=== PATIENT | male | born 1940 | race Two or more races ===

== ENCOUNTER → 2016-08-15 | Outpatient (CLI) | payer MEDICARE, MEDICAID ==
[~2016-08-15] MED LIST: AMIODARONE HCL200 MG ORAL; ASPIR 8181 MG ORAL; CARVEDILOL6.25 MG ORAL; CRESTOR40 MG ORAL; ENTRESTO 97 MG1 EACH PO; FINASTERIDE5 MG ORAL; GABAPENTIN PO; IBUPROFEN600 MG ORAL; LEVOTHYROXINE75 MCG ORAL; PRILOSEC20 MG ORAL; RANEXA1000 MG ORAL; RANEXA500 MG ORAL; ZETIA10 MG ORAL
--- NOTE | 2016-08-17 08:30 | Diagnostic Imaging Report ---
Indications: COUGH Technique: PA and lateral chest Findings: Comparison: 10/19/14 Inspiratory effort improved. Small calcified nodules again noted in right lung apex. Lungs now otherwise clear and appear mildly hyperinflated with flattening of the diaphragm. Heart size, pulmonary vasculature within normal limits. No pleural abnormalities. Aortic arch elongation, sternal wires again noted. IMPRESSION: No current evidence of acute cardiopulmonary disease Suggestion of COPD Stable chronic changes as described
== END | disposition home or self-care (01) ==
LOC: RAD 11:33
DX: Z01.818 Encounter for other preprocedural examination (principal); R05 Cough
CPT/HCPCS: 71020

== ENCOUNTER 2016-09-22 13:26 | Inpatient (IN) | payer MEDICARE, MEDICAID ==
[~2016-09-22] VITALS: Ht 157.5 cm; Wt 78.5 kg
[~2016-09-22 13:26] MED LIST changes: -AMIODARONE HCL200 MG ORAL; -FINASTERIDE5 MG ORAL; -RANEXA1000 MG ORAL
[2016-09-22 14:42] LABS: APPEARANCE,URINE CLOUDY; LEUKOCYTE ESTERASE ,URINE 3+ (NEGATIVE); NITRITE,URINE POSITIVE (NEGATIVE); PH,URINE 5 (4.5-8.0); PROTEIN,URINE 3+ (NEGATIVE); UROBILINOGEN,URINE 1 MG/DL (0.0-1.0)
[2016-09-22] MEDS ORDERED: metroNIDAZOLE 500mg 100 ML IV SCH (14:45)
[2016-09-22 14:49] LABS: KETONES,URINE NEGATIVE (NEGATIVE)
[2016-09-22 14:53] LABS: BACTERIA,URINE FEW /HPF; ICTOTEST NEGATIVE; SQUAMOUS EPITHELIAL CELL,UR OCCASIONAL /LPF (NONE/OCC); WBC,URINE 60-80 /HPF (0 - 0)
[2016-09-22] MEDS ORDERED: Unasyn 3gm Inj ONE (15:42)
[2016-09-22] MEDS: Ampicillin/Sulbactam Sod 3 GM in NS 110 ML IV SCH ×2 (15:45→20:45)
[2016-09-22 16:00] LABS: BASOPHILS % (AUTO) 0.3 % (0.0-2.0); EOSINOPHILS % (AUTO) 0.7 % (0.0-3.0); LYMPHOCYTES % (AUTO) 7.8 % (20.0-45.0); MEAN CORPUSCULAR HGB CONC 31.9 G/DL (32.0-36.0); MEAN CORPUSCULAR VOLUME 97 FL (80-99); MEAN PLATELET VOLUME 6.8 FL (6.5-10.1); MONOCYTES % (AUTO) 7.1 % (1.0-10.0); NEUTROPHILS % (AUTO) 84.1 % (45.0-75.0); PLATELET COUNT 226 K/UL (150-450); RED BLOOD COUNT 3.79 M/UL (4.70-6.10); RED CELL DISTRIBUTION WIDTH 13.8 % (11.6-14.8); WHITE BLOOD COUNT 15.8 K/UL (4.8-10.8)
[2016-09-22 16:06] LABS: INR 1.4 (0.9-1.1); PROTHROMBIN TIME 14.6 SEC (9.30-11.50)
[2016-09-22 16:17] LABS: ALANINE AMINOTRANSFERASE 13 U/L (3-41); ALBUMIN/GLOBULIN RATIO 1.1 (1.0-2.7); ANION GAP 16 (5-15); ASPARTATE AMINO TRANSFERASE 13 U/L (5-40); CALCIUM 8.8 mg/dL (8.6-10.2); CARBON DIOXIDE 26 mEQ/L (20-30); CHLORIDE 97 mEQ/L (98-107); CREATININE 1.3 mg/dL (0.7-1.2); HEMOLYSIS 2; POTASSIUM 3.8 mEQ/L (3.4-4.9); SODIUM 139 mEQ/L (135-145); TOTAL PROTEIN 7.2 g/dL (6.6-8.7)
[2016-09-22 16:28] LABS: CKMB < 1.5 ng/mL (< 6.7)
[2016-09-22 16:33] LABS: TROPONIN I < 0.30 ng/mL (<=0.30)
[2016-09-22 16:39] VITALS: BP 94/69
[2016-09-22 17:45] VITALS: BP 119/58
[2016-09-22 18:44] VITALS: BP 114/53
--- NOTE | 2016-09-22 18:45 | Emergency Room Report ---
History of Present Illness General Chief Complaint: Male Urogenital Problems Source: Patient Present Illness HPI Patient is a 76-year-old male presented after increased scrotal swelling for the past 3 days. Patient had gradual onset of symptoms. Patient was noted to have increased pain to his scrotal area and was having some difficulty walking. The patient had prior to prostate surgery approximately one month ago. This was performed at [facility]. Allergies: Coded Allergies: No Known Allergies (Unverified , 08/09/12) Patient History Past Medical History: see triage record Reviewed Nursing Documentation: PMH: Agreed, PSxH: Agreed Nursing Documentation-PMH Past Medical History: No History, Except For Hx Cardiac Problems: Yes Hx Hypertension: Yes Review of Systems All Other Systems: negative except mentioned in HPI Physical Exam Vital Signs Date Time Temp Pulse Resp B/P Pulse Ox O2 Delivery O2 Flow Rate FiO2 09/22/16 13:47 97.5 72 18 91/56 98 Room Air Sp02 EP Interpretation: reviewed, normal General Appearance: normal inspection, alert, mild distress Head: atraumatic ENT: normal ENT inspection, hearing grossly normal, normal voice Neck: normal inspection, full range of motion, supple, no bony tend Respiratory: normal inspection, lungs clear, normal breath sounds, no respiratory distress, no retraction, no wheezing Cardiovascular #1: regular rate, rhythm, no edema Gastrointestinal: normal inspection, normal bowel sounds, non tender, soft, no guarding, no hernia Genitourinary: other - scrotal swelling and erythema Musculoskeletal: normal inspection, back normal, normal range of motion Neurologic: normal inspection, alert, oriented x3, responsive, portfolio administrator III-XII nml as tested, speech normal Psychiatric: normal inspection, judgement/insight normal, mood/affect normal Skin: normal inspection, normal color, no rash Medical Decision Making Diagnostic Impression: Primary Impression: Cellulitis of scrotum Additional Impressions: Prostate hypertrophy Urinary tract infection ER Course Patient present for scrotal swelling. Differential diagnosis included was not limited to Fournieres gangrene, scrotal cellulitis, hydrocele, epidydimoorchitis. Because of complexity of patient's case laboratory testing and imaging studies were ordered. The patient was noted to have some evidence of urinary tract infection. The patient was noted to have some soft tissue swelling the scrotum. CT of the abdomen and pelvis read by radiology showed no scrotal air. The patient was discussed with Dr. Yanes for urology consult. Dr. delgado was contacted for inpatient management Laboratory Tests Test 09/22/16 14:30 09/22/16 15:24 Urine Color Brown Urine Appearance Cloudy Urine pH 5 (4.5-8.0) Urine Specific [place] 1.025 (1.005-1.035) Urine Protein 3+ (NEGATIVE) H Urine Glucose (UA) 1+ (NEGATIVE) H Urine Ketones Negative (NEGATIVE) Urine Occult Blood 5+ (NEGATIVE) H Urine Nitrite Positive (NEGATIVE) H Urine Bilirubin 1+ (NEGATIVE) H Urine Ictotest Negative Urine Urobilinogen 1 MG/DL (0.0-1.0) H Urine Leukocyte Esterase 3+ (NEGATIVE) H Urine RBC 10-15 /HPF (0 - 0) H Urine WBC 60-80 /HPF (0 - 0) H Urine Squamous Epithelial Cells Occasional /LPF Urine Bacteria Few /HPF (NONE) White Blood Count 15.8 K/UL (4.8-10.8) H Red Blood Count 3.79 M/UL (4.70-6.10) L Hemoglobin 11.7 G/DL (14.2-18.0) L Hematocrit 36.8 % (42.0-52.0) L Mean Corpuscular Volume 97 FL (80-99) Mean Corpuscular Hemoglobin 31.0 PG (27.0-31.0) Mean Corpuscular Hemoglobin Concent 31.9 G/DL (32.0-36.0) L Red Cell Distribution Width 13.8 % (11.6-14.8) Platelet Count 226 K/UL (150-450) Mean Platelet Volume 6.8 FL (6.5-10.1) Neutrophils (%) (Auto) 84.1 % (45.0-75.0) H Lymphocytes (%) (Auto) 7.8 % (20.0-45.0) L Monocytes (%) (Auto) 7.1 % (1.0-10.0) Eosinophils (%) (Auto) 0.7 % (0.0-3.0) Basophils (%) (Auto) 0.3 % (0.0-2.0) Prothrombin Time 14.6 SEC (9.30-11.50) H Prothrombin Time INR 1.4 (0.9-1.1) H PTT 36 SEC (23-33) H Sodium Level 139 mEQ/L (135-145) Potassium Level 3.8 mEQ/L (3.4-4.9) Chloride Level 97 mEQ/L (98-107) L Carbon Dioxide Level 26 mEQ/L (20-30) Anion Gap 16 (5-15) H Blood Urea Nitrogen 25 mg/dL (7-23) H Creatinine 1.3 mg/dL (0.7-1.2) H Estimate Glomerular Filtration Rate mL/min (>60) Glucose Level 99 mg/dL (74-106) Lactic Acid Level 1.70 mmol/L (0.66-2.22) Calcium Level 8.8 mg/dL (8.6-10.2) Total Bilirubin 1.0 mg/dL (0.0-1.2) Aspartate Amino Transferase (AST) 13 U/L (5-40) Alanine Aminotransferase (ALT) 13 U/L (3-41) Alkaline Phosphatase 64 U/L (40-129) Total Creatine Kinase 46 U/L (38-174) Creatine Kinase MB < 1.5 ng/mL (< 6.7) Creatine Kinase MB Relative Index Troponin I < 0.30 ng/mL (<=0.30) Total Protein 7.2 g/dL (6.6-8.7) Albumin 3.8 g/dL (3.5-5.2) Globulin 3.4 g/dL Albumin/Globulin Ratio 1.1 (1.0-2.7) Last Vital Signs Date Time Temp Pulse Resp B/P Pulse Ox O2 Delivery O2 Flow Rate FiO2 09/22/16 17:45 97.7 69 21 119/58 98 Room Air Status: unchanged Disposition: ADMITTED INPATIENT Condition: Serious Referrals: NON PHYSICIAN (PCP) Fred Talbot Sep 22, 2016 18:45
[2016-09-22] MEDS ORDERED: Morphine Sulfate 2mg/ml Inj IVP PRN (22:00)
[2016-09-22] MEDS ORDERED: Nitroglycerin Subl 0.4mg tab (Bottle Of 25) SL PRN (22:00)
[2016-09-22] MEDS ORDERED: Miralax 17gm pkt ORAL PRN (22:00)
[2016-09-22] MEDS ORDERED: DuoNeb 0.5-3(2.5)mg/3ml neb HHN PRN (22:00)
[2016-09-22] MEDS ORDERED: Vancomycin 1gm inj IVPB ONE (22:45)
[2016-09-22] MEDS: Vancomycin 1gm in D5W 275ml IVPB SCH (22:54)
[2016-09-22] MEDS ORDERED: Cefepime HCl 2 GM in D5W 110 ML IV SCH (23:30)
[2016-09-23] VITALS (8 sets, daily range): BP systolic 83–125; BP diastolic 50–73
[2016-09-23] MEDS ORDERED: Vancomycin 1 GM in D5W 275 ML IV SCH (00:30)
[2016-09-23] MEDS ORDERED: Cefepime 2gm ONE (01:05)
[2016-09-23] MEDS: Cefepime HCl 2 GM in D5W 110 ML IV SCH (01:15)
[2016-09-23] MEDS ORDERED: AMIODARONE HCL200 MG ORAL (01:53)
[2016-09-23] MEDS ORDERED: FINASTERIDE5 MG ORAL (01:53)
--- NOTE | 2016-09-23 04:49 | Consultation ---
DATE OF CONSULTATION: 09/22/2016 UROLOGY CONSULTATION REASON FOR CONSULTATION: The patient is a 76-year-old male complaining of scrotal pain and swelling for three days. He came to the emergency room. CAT scan showed swelling. It did not show any free air or other ominous findings. The patient complains of having a reasonable urination. He had a transurethral resection of the prostate. The patient gives no further history. PAST MEDICAL HISTORY: I was unable to obtain from the patient. PAST SURGICAL HISTORY: Likely transurethral resection of the prostate. SOCIAL HISTORY: Noncontributory. REVIEW OF SYSTEMS: Noncontributory. PHYSICAL EXAMINATION: GENERAL: The patient with mild distress. ABDOMEN: Soft and nontender. BACK: No CVA tenderness. EXTERNAL GENITALIA: Scrotum with moderate swelling bilaterally and mild erythema. Penis within normal limits. RECTAL: Prostate with mild enlargement and no nodules. ASSESSMENT AND PLAN: The patient has scrotal cellulitis. He would respond nicely to intravenous antibiotics and will be followed in the hospital during this hospital course. Neal Yanes DR: CATY JOB#: [id number] CC:
[2016-09-23 07:46] LABS: BASOPHILS % (AUTO) 0.5 % (0.0-2.0); EOSINOPHILS % (AUTO) 1.3 % (0.0-3.0); LYMPHOCYTES % (AUTO) 10.8 % (20.0-45.0); MEAN CORPUSCULAR HEMOGLOBIN 30.7 PG (27.0-31.0); MEAN CORPUSCULAR HGB CONC 32.2 G/DL (32.0-36.0); MEAN CORPUSCULAR VOLUME 95 FL (80-99); MEAN PLATELET VOLUME 6.5 FL (6.5-10.1); MONOCYTES % (AUTO) 10.3 % (1.0-10.0); NEUTROPHILS % (AUTO) 77.1 % (45.0-75.0); PLATELET COUNT 161 K/UL (150-450); RED BLOOD COUNT 2.86 M/UL (4.70-6.10); RED CELL DISTRIBUTION WIDTH 13.4 % (11.6-14.8); WHITE BLOOD COUNT 12.1 K/UL (4.8-10.8)
[2016-09-23 08:00] LABS: ALANINE AMINOTRANSFERASE 10 U/L (3-41); ALBUMIN/GLOBULIN RATIO 1.3 (1.0-2.7); ANION GAP 14 (5-15); ASPARTATE AMINO TRANSFERASE 11 U/L (5-40); CALCIUM 7.7 mg/dL (8.6-10.2); CARBON DIOXIDE 23 mEQ/L (20-30); CHLORIDE 101 mEQ/L (98-107); HEMOLYSIS 2; POTASSIUM 3.4 mEQ/L (3.4-4.9); SODIUM 138 mEQ/L (135-145); TOTAL PROTEIN 5.2 g/dL (6.6-8.7)
[2016-09-23] MEDS: Carvedilol 6.25mg Tab ORAL SCH ×2 (09:00→20:31)
[2016-09-23] MEDS: Ranolazine 500mg tab ORAL SCH ×3 (09:00→20:30)
[2016-09-23] MEDS: Heparin 5000 units/ml inj SUBQ SCH ×3 (09:05→21:00)
--- NOTE | 2016-09-23 09:43 | Diagnostic Imaging Report ---
Indication: Abdominal pain Technique: Continuous helical transaxial imaging of the abdomen and pelvis was obtained from the lung bases to the pubic symphysis during intravenous contrast administration. Coronal 2-D reformats were also obtained. Study obtained in a Siemens sensation [address] Total Dose length Product (DLP): [address] Dose Index Volume (CTDIvol): 19 mGy Comparison: None Findings: There is mild posterior basilar atelectasis. Small fat-containing hernia noted in the posterior aspect of the right hemidiaphragmatic leaflet. There is small nonobstructive stone in the left kidney. There is perinephric stranding which is nonspecific. There is thickening of the wall the urinary bladder. There is a large cyst in the upper pole the right kidney measuring between 8 and 9 cm. There is no evidence of intra-abdominal abscess or free fluid. There are small bilateral inguinal hernias containing fat. There is marked edema within the scrotal wall and evidence of bilateral hydroceles. Further clinical evaluation suggested. There is a defect in the central portion of the prostate consistent with previous transurethral resection of the prostate gland. The gallbladder is noted. Questionable small stones are present. The pancreas, both adrenal glands, spleen appear unremarkable. Impression: Scrotal wall edema and bilateral hydroceles. Clinical evaluation recommended. Nonobstructive stone in the left kidney Bilateral perinephric stranding nonspecific. Consider pyelonephritis and infection. 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 8-9 cm right renal cyst Thickening of the urinary bladder wall consistent with cystitis. Please correlate clinically. Status post TURP Dr. Hill has communicated the preliminary results to the Emergency Department. There are no significant discrepancies. The CT scanner at [facility] is accredited by the [employer] and the scans are performed using protocols designed to limit radiation exposure to as low as reasonably achievable to attain images of sufficient resolution adequate for diagnostic evaluation.
--- NOTE | 2016-09-23 10:01 | Cardiology Report ---
APPROVED REPORT EKG Measurement Heart [id number] Normal sinus rhythm Left bundle branch block Abnormal ECG
[2016-09-23] MEDS ORDERED: RANEXA1000 MG ORAL (10:49)
--- NOTE | 2016-09-23 11:09 | Diagnostic Imaging Report ---
Indication: Dyspnea Comparison: 08/15/69 A single view chest radiograph was obtained. Findings: There is a sternotomy noted. Heart is mildly enlarged. Left hemidiaphragm is elevated. Bones are osteopenic. Lungs are slightly hyperinflated. Impression: No acute disease
--- NOTE | 2016-09-23 14:01 | Consultation ---
Consult Note Consult Note ID CONSULT: Vivian# [id number] Assessment/Plan ASSESSMENT: 76 y/o male with: // Scrotal cellulitis - CT A/P: Scrotal wall edema and bilateral hydroceles // Probable complicated UTI / cystitis - UCx pending - CT A/P: Nonobstructive stone in the left kidney. Bilateral perinephric stranding nonspecific. 8-9 cm right renal cyst. Thickening of the urinary bladder wall consistent with cystitis. - h/o TURP // Leukocytosis - improved, afebrile // STEPHANY - resolved // NKDA // Full Code PLAN: - continue empiric IV vancomycin, cefepime d# -14 pending cultures - f/u cultures, adjust ABX accordingly - monitor CBC, temperatures - monitor BMP Thanks! Will follow BELÉN JONES Sep 23, 2016 14:01
--- NOTE | 2016-09-23 14:01 | Urology Progress Note ---
Assessment/Plan Status: stable Assessment/Plan 76 yo male with scrotal swelling and likely left worse than right epididymitis. Swelling is reactive. Already feels better. Should improve rapidly on abx. 1. scrotal elevation 2. abx for 2 weeks, if culture negative recommend cipro 500 mg BID or Bactrim DS BID x 2 weeks 3. f/u with own urologist in 2 weeks. Subjective Date patient seen: Sep 23, 2016 Time patient seen: 13:59 ROS Limited/Unobtainable: No Constitutional: Denies: chills, diaphoresis, fever, malaise, no symptoms, other , weakness HEENT: Denies: blurred vision, double vision, ear discharge, ear pain, eye pain , mouth pain, mouth swelling, no symptoms, nose congestion, nose pain, other, tearing, throat pain, throat swelling Cardiovascular: Denies: chest pain, edema, irregular heart rate, lightheadedness, no symptoms, other, palpitations, syncope Respiratory: Denies: SOB at rest, SOB with excertion, cough, no symptoms, orthopnea, other, shortness of breath, sputum, stridor, wheezing Gastrointestinal/Abdominal: Denies: abdomen distended, abdominal pain, black stools, blood in stool, constipated, diarrhea, difficulty swallowing, nausea, no symptoms, other, poor appetite, poor fluid intake, rectal bleeding, tarry stools, vomiting Genitourinary: Reports: pain Neurologic/Psychiatric: Denies: anxiety, depressed, emotional problems, headache, no symptoms, numbness, other, paresthesia, pre-existing deficit, seizure, tingling, tremors, weakness Endocrine: Denies: excessive sweating, flushing, increased hunger, increased thirst, increased urine, intolerance to cold, intolerance to heat, no symptoms, other, unexplained weight gain, unexplained weight loss Hematologic/Lymphatic: Denies: anemia, easy bleeding, easy bruising, no symptoms, other Allergies: Coded Allergies: No Known Allergies (Unverified , 08/09/12) Subjective feeling better. right testicle improved. Objective Last 24 Hour Vital Signs Date Time Temp Pulse Resp B/P Pulse Ox O2 Delivery O2 Flow Rate FiO2 09/23/16 13:40 19 94/59 96 Room Air 09/23/16 12:43 97.0 59 18 83/50 95 Room Air 09/23/16 12:00 61 09/23/16 09:00 68 84/52 09/23/16 08:23 98.2 65 18 93/54 96 Room Air 09/23/16 08:07 67 09/23/16 05:00 72 115/60 09/23/16 04:00 64 09/23/16 04:00 99.0 67 18 91/50 95 Room Air 09/23/16 00:00 71 09/23/16 00:00 97.0 70 18 110/50 96 Room Air 09/22/16 21:33 76 18 104/56 96 Room Air 09/22/16 18:44 70 15 114/53 98 Room Air 09/22/16 17:45 97.7 69 21 119/58 98 Room Air 09/22/16 16:39 69 15 94/69 99 Room Air Intake and Output 09/22/16 09/23/16 19:00 07:00 Intake Total 1210 ml 755.000 ml Balance 1210 ml 755.000 ml Intake Oral 120 ml IV Total 1210 ml 635.000 ml # Voids 2 Laboratory Tests 09/22/16 14:30: Urine Color Brown, Urine Appearance Cloudy, Urine pH 5, Urine Specific [place] 1.025, Urine Protein 3+H, Urine Glucose (UA) 1+H, Urine Ketones Negative, Urine Occult Blood 5+H, Urine Nitrite PositiveH, Urine Bilirubin 1+H, Urine Ictotest Negative, Urine Urobilinogen 1H, Urine Leukocyte Esterase 3+H, Urine RBC 10-15H , Urine WBC 60-80H, Urine Squamous Epithelial Cells Occasional, Urine Bacteria Few 09/22/16 15:24: White Blood Count 15.8H, Red Blood Count 3.79L, Hemoglobin 11.7L, Hematocrit 36.8L, Mean Corpuscular Volume 97, Mean Corpuscular Hemoglobin 31.0, Mean Corpuscular Hemoglobin Concent 31.9L, Red Cell Distribution Width 13.8, Platelet Count 226, Mean Platelet Volume 6.8, Neutrophils (%) (Auto) 84.1H, Lymphocytes (%) (Auto) 7.8L, Monocytes (%) (Auto) 7.1, Eosinophils (%) (Auto) 0.7, Basophils (%) (Auto) 0.3, Prothrombin Time 14.6H, Prothromb Time International Ratio 1.4H, Activated Partial Thromboplast Time 36H, Sodium Level 139, Potassium Level 3.8, Chloride Level 97L, Carbon Dioxide Level 26, Anion Gap 16H, Blood Urea Nitrogen 25H, Creatinine 1.3H, Estimat Glomerular Filtration Rate , Glucose Level 99, Lactic Acid Level 1.70, Calcium Level 8.8, Total Bilirubin 1.0, Aspartate Amino Transf (AST/SGOT) 13, Alanine Aminotransferase (ALT/SGPT) 13, Alkaline Phosphatase 64, Total Creatine Kinase 46, Creatine Kinase MB < 1.5, Creatine Kinase MB Relative Index , Troponin I < 0.30, Total Protein 7.2, Albumin 3.8, Globulin 3.4, Albumin/Globulin Ratio 1.1 09/23/16 07:00: White Blood Count 12.1H, Red Blood Count 2.86L, Hemoglobin 8.8L, Hematocrit 27.2L, Mean Corpuscular Volume 95, Mean Corpuscular Hemoglobin 30.7, Mean Corpuscular Hemoglobin Concent 32.2, Red Cell Distribution Width 13.4, Platelet Count 161, Mean Platelet Volume 6.5, Neutrophils (%) (Auto) 77.1H, Lymphocytes ( %) (Auto) 10.8L, Monocytes (%) (Auto) 10.3H, Eosinophils (%) (Auto) 1.3, Basophils (%) (Auto) 0.5, Sodium Level 138, Potassium Level 3.4, Chloride Level 101, Carbon Dioxide Level 23, Anion Gap 14, Blood Urea Nitrogen 21, Creatinine 1.0, Estimat Glomerular Filtration Rate , Glucose Level 140H, Calcium Level 7.7L , Total Bilirubin 0.9, Aspartate Amino Transf (AST/SGOT) 11, Alanine Aminotransferase (ALT/SGPT) 10, Alkaline Phosphatase 48, Total Protein 5.2L, Albumin 3.0L, Globulin 2.2, Albumin/Globulin Ratio 1.3 Height (Feet): 5 Height (Inches): 2.00 Weight (Pounds): 173 General Appearance: no apparent distress Genitourinary/Rectal: other - scrotal swelling, foreskin swelling, right testicle normal, left testicle firm 1+TTP Tho Kinney M.D. Sep 23, 2016 14:01
--- NOTE | 2016-09-23 14:59 | History and Physical ---
History of Present Illness General Date patient seen: Sep 23, 2016 Reason for Hospitalization: Male Urogenital pain Present Illness HPI 76-year-old male with hx of arrhythmias, HTN, BPH presented to ER with CC of increased scrotal swelling for the past 3 days. Patient had gradual onset of symptoms. Patient was noted to have increased pain to his scrotal area and was having some difficulty walking. The patient had prior to prostate surgery approximately one month ago. He was diagnosed to have scrotal cellulitis and admitted for further evaluation. Allergies: Coded Allergies: No Known Allergies (Unverified , 08/09/12) Medication History Scheduled Amiodarone Hcl* (Cordarone*), 200 MG ORAL DAILY, (Reported) Aspirin* (Aspir 81*), 81 MG ORAL DAILY, (Reported) Carvedilol* (Carvedilol*), 6.25 MG ORAL EVERY 12 HOURS, (Reported) Ezetimibe (Zetia*), 10 MG ORAL BEDTIME, (Reported) Finasteride (Finasteride), 5 MG ORAL DAILY, (Reported) Levothyroxine Sodium* (Levothyroxine Sodium*), 75 MCG ORAL DAILY, (Reported) Omeprazole (Prilosec), 20 MG ORAL DAILY Ranolazine (Ranexa), 1,000 MG ORAL EVERY 12 HOURS, (Reported) Ranolazine* (Ranexa*), 500 MG ORAL EVERY 12 HOURS, (Reported) Rosuvastatin Calcium* (Crestor*), 40 MG ORAL DAILY, (Reported) Scheduled PRN Ibuprofen* (Motrin*), 600 MG ORAL Q8H PRN for For Pain Miscellaneous Medications Sacubitril/Valsartan (Entresto 97 mg-103 mg Tablet), 1 EACH PO, (Reported) [Gabapentin], PO, (Reported) Patient History Healthcare decision maker Resuscitation status Full Code Advanced Directive on File No Past Medical/Surgical History Past Medical/Surgical History: (1) Prostate hypertrophy Review of Systems All Other Systems: negative except mentioned in HPI Physical Exam General Appearance: WD/WN Lines, tubes and drains: peripheral, central line HEENT: normocephalic, atraumatic Respiratory/Chest: chest wall non-tender, normal breath sounds Cardiovascular/Chest: normal peripheral pulses, normal rate Genitourinary/Rectal: other - swollen scrotum Last 24 Hour Vital Signs Date Time Temp Pulse Resp B/P Pulse Ox O2 Delivery O2 Flow Rate FiO2 09/23/16 13:40 19 94/59 96 Room Air 09/23/16 12:43 97.0 59 18 83/50 95 Room Air 09/23/16 12:00 61 09/23/16 09:00 68 84/52 09/23/16 08:23 98.2 65 18 93/54 96 Room Air 09/23/16 08:07 67 09/23/16 05:00 72 115/60 09/23/16 04:00 64 09/23/16 04:00 99.0 67 18 91/50 95 Room Air 09/23/16 00:00 71 09/23/16 00:00 97.0 70 18 110/50 96 Room Air 09/22/16 21:33 76 18 104/56 96 Room Air 09/22/16 18:44 70 15 114/53 98 Room Air 09/22/16 17:45 97.7 69 21 119/58 98 Room Air 09/22/16 16:39 69 15 94/69 99 Room Air Intake and Output 09/22/16 09/23/16 19:00 07:00 Intake Total 1210 ml 755.000 ml Balance 1210 ml 755.000 ml Intake Oral 120 ml IV Total 1210 ml 635.000 ml # Voids 2 Laboratory Tests Test 09/22/16 15:24 09/23/16 07:00 White Blood Count 15.8 K/UL (4.8-10.8) H 12.1 K/UL (4.8-10.8) H Red Blood Count 3.79 M/UL (4.70-6.10) L 2.86 M/UL (4.70-6.10) L Hemoglobin 11.7 G/DL (14.2-18.0) L 8.8 G/DL (14.2-18.0) L Hematocrit 36.8 % (42.0-52.0) L 27.2 % (42.0-52.0) L Mean Corpuscular Volume 97 FL (80-99) 95 FL (80-99) Mean Corpuscular Hemoglobin 31.0 PG (27.0-31.0) 30.7 PG (27.0-31.0) Mean Corpuscular Hemoglobin Concent 31.9 G/DL (32.0-36.0) L 32.2 G/DL (32.0-36.0) Red Cell Distribution Width 13.8 % (11.6-14.8) 13.4 % (11.6-14.8) Platelet Count 226 K/UL (150-450) 161 K/UL (150-450) Mean Platelet Volume 6.8 FL (6.5-10.1) 6.5 FL (6.5-10.1) Neutrophils (%) (Auto) 84.1 % (45.0-75.0) H 77.1 % (45.0-75.0) H Lymphocytes (%) (Auto) 7.8 % (20.0-45.0) L 10.8 % (20.0-45.0) L Monocytes (%) (Auto) 7.1 % (1.0-10.0) 10.3 % (1.0-10.0) H Eosinophils (%) (Auto) 0.7 % (0.0-3.0) 1.3 % (0.0-3.0) Basophils (%) (Auto) 0.3 % (0.0-2.0) 0.5 % (0.0-2.0) Prothrombin Time 14.6 SEC (9.30-11.50) H Prothromb Time International Ratio 1.4 (0.9-1.1) H Activated Partial Thromboplast Time 36 SEC (23-33) H Sodium Level 139 mEQ/L (135-145) 138 mEQ/L (135-145) Potassium Level 3.8 mEQ/L (3.4-4.9) 3.4 mEQ/L (3.4-4.9) Chloride Level 97 mEQ/L (98-107) L 101 mEQ/L (98-107) Carbon Dioxide Level 26 mEQ/L (20-30) 23 mEQ/L (20-30) Anion Gap 16 (5-15) H 14 (5-15) Blood Urea Nitrogen 25 mg/dL (7-23) H 21 mg/dL (7-23) Creatinine 1.3 mg/dL (0.7-1.2) H 1.0 mg/dL (0.7-1.2) Estimat Glomerular Filtration Rate mL/min (>60) mL/min (>60) Glucose Level 99 mg/dL (74-106) 140 mg/dL (74-106) H Lactic Acid Level 1.70 mmol/L (0.66-2.22) Calcium Level 8.8 mg/dL (8.6-10.2) 7.7 mg/dL (8.6-10.2) L Total Bilirubin 1.0 mg/dL (0.0-1.2) 0.9 mg/dL (0.0-1.2) Aspartate Amino Transf (AST/SGOT) 13 U/L (5-40) 11 U/L (5-40) Alanine Aminotransferase (ALT/SGPT) 13 U/L (3-41) 10 U/L (3-41) Alkaline Phosphatase 64 U/L (40-129) 48 U/L (40-129) Total Creatine Kinase 46 U/L (38-174) Creatine Kinase MB < 1.5 ng/mL (< 6.7) Creatine Kinase MB Relative Index Troponin I < 0.30 ng/mL (<=0.30) Total Protein 7.2 g/dL (6.6-8.7) 5.2 g/dL (6.6-8.7) L Albumin 3.8 g/dL (3.5-5.2) 3.0 g/dL (3.5-5.2) L Globulin 3.4 g/dL 2.2 g/dL Albumin/Globulin Ratio 1.1 (1.0-2.7) 1.3 (1.0-2.7) Height (Feet): 5 Height (Inches): 2.00 Weight (Pounds): 173 Medications Current Medications Medications (Trade) Dose Ordered Sig/Alonzo Route PRN Reason Start Time Stop Time Status Last Admin Dose Admin Acetaminophen (Tylenol) 650 mg Q4H PRN ORAL fever 09/22/16 22:00 10/22/16 21:59 Albuterol/ Ipratropium (DuoNeb 0.5-3(2.5)mg/3ml) 3 ml EVERY 4 HOURS PRN HHN Shortness of Breath 09/22/16 22:00 09/27/16 21:59 Carvedilol (Coreg) 6.25 mg EVERY 12 HOURS ORAL 09/23/16 09:00 10/23/16 08:59 Cefepime HCl 2 gm/ Dextrose 110 ml @ 220 mls/hr Q24H IV 09/23/16 01:00 09/30/16 00:59 09/23/16 01:15 Heparin Sodium (Porcine) (Heparin 5000 units/ml) 5,000 units EVERY 12 HOURS SUBQ 09/23/16 09:00 10/23/16 08:59 09/23/16 09:05 Ibuprofen (Motrin) 600 mg Q8H PRN ORAL For Pain 09/23/16 06:00 10/23/16 05:59 09/23/16 06:20 Levothyroxine Sodium (Synthroid) 75 mcg ACBREAKFAST ORAL 09/23/16 06:30 10/23/16 06:29 09/23/16 06:18 Morphine Sulfate (Morphine Sulfate) 2 mg EVERY 4 HOURS PRN IVP Moderate Pain (Pain Scale 4-6) 09/22/16 22:00 09/29/16 21:59 Nitroglycerin (Ntg) 0.4 mg Q5M x 3 DOSES PRN SL Prn Chest Pain 09/22/16 22:00 10/22/16 21:59 Ondansetron HCl (Zofran) 4 mg Q6H PRN IVP Nausea & Vomiting 09/22/16 22:00 10/22/16 21:59 Polyethylene Glycol (Miralax) 17 gm DAILYPRN PRN ORAL Constipation 09/22/16 22:00 10/22/16 21:59 Ranolazine (Ranexa ER 500mg) 500 mg EVERY 12 HOURS ORAL 09/23/16 09:00 10/23/16 08:59 Sodium Chloride (Sodium Chloride 1000ml bag) 1,000 ml @ 50 mls/hr Q20H IVLG 09/23/16 01:00 10/23/16 00:59 09/23/16 01:16 Temazepam (Restoril) 15 mg HSPRN PRN ORAL Insomnia 09/22/16 22:00 09/29/16 21:59 Vancomycin HCl 1 ea 1 ea DAILY PRN MISC Per rx protocol 09/22/16 22:30 10/22/16 22:29 Vancomycin HCl 1 gm/Dextrose 275 ml @ 183.708 mls/hr Q24H IVPB 09/22/16 22:30 09/27/16 22:29 09/22/16 22:54 Assessment/Plan Problem List: (1) Cellulitis of scrotum ICD Codes: N49.2 - Inflammatory disorders of scrotum SNOMED: 65422625 (2) Prostate hypertrophy ICD Codes: N40.0 - Benign prostatic hyperplasia without lower urinary tract symptoms SNOMED: 220940713 (3) Urinary tract infection ICD Codes: N39.0 - Urinary tract infection, site not specified SNOMED: 42122527 (4) Hypertension ICD Codes: I10 - Essential (primary) hypertension SNOMED: 59154838 (5) Arrhythmia ICD Codes: I49.9 - Cardiac arrhythmia, unspecified SNOMED: 93266492, 51840109, 266486763 Assessment/Plan IV antibiotics check cultures ID evaluation cardio to see for LBBB monitor bp NENA DWYER Sep 23, 2016 14:58
[2016-09-23] MEDS ORDERED: Tubing IV Secondary IV ONE (16:09)
[2016-09-23] MEDS: Aspirin EC 81mg tab ORAL SCH (16:20)
[2016-09-23] MEDS: Amiodarone 200mg tab ORAL SCH (16:22)
--- NOTE | 2016-09-23 20:08 | Consultation ---
DATE OF CONSULTATION: 09/23/2016 INFECTIOUS DISEASES CONSULTATION CONSULTING PHYSICIAN: Tree Quinones M.D. REQUESTING PHYSICIAN: Ruddy Llamas M.D. REASON FOR CONSULTATION: Scrotal cellulitis. HISTORY OF PRESENT ILLNESS: This is a 76-year-old male admitted on 09/22/2016 with scrotal pain and swelling. A CT of abdomen and pelvis was consistent with scrotal wall edema and bilateral hydroceles. Urinalysis suggests probable urinary tract infection or cystitis. A urine culture is pending. Associated leukocytosis, improving and afebrile as well as associated renal insufficiency, now resolved. The patient has been started on empiric IV vancomycin and cefepime and ID now consulted to assist in management. PAST MEDICAL HISTORY: 1. Hypothyroidism. 2. Hypertension. 3. BPH. PAST SURGICAL HISTORY: Transurethral resection of prostate. ALLERGIES: No known drug allergies. MEDICATIONS: 1. Vancomycin day #1. 2. Cefepime day #1. 3. Synthroid. 4. Subcutaneous heparin. 5. Ranexa. 6. Coreg. FAMILY HISTORY: Noncontributory. SOCIAL HISTORY: No active tobacco, alcohol, or illicit drug abuse. REVIEW OF SYSTEMS: As per history of present illness. Ten systems reviewed. All pertinent positives and negatives noted. PHYSICAL EXAMINATION: VITAL SIGNS: Maximum temperature 99 degrees, blood pressure 94/59, heart rate in 60s, respiratory rate 19, and saturating 96% on room air. GENERAL: No apparent distress. Nontoxic appearing. CARDIOVASCULAR: Regular rate and rhythm. No murmurs. PULMONARY: Clear to auscultation bilaterally. ABDOMEN: Bowel sounds present. Soft, nondistended, and nontender. GENITOURINARY: Scrotal erythema and swelling. EXTREMITIES: No edema. LABORATORY DATA: White blood cell count 12.1, decreased from 15.8 with left shift, hemoglobin 8.8, and platelets 161,000. Sodium 138, potassium 3.4, chloride 101, bicarbonate 23, BUN 21, and creatinine 1, decreased from 1.3. INR is 1.4. Liver function tests within normal limits. Troponin is negative x1. MICROBIOLOGY: 1. The 09/22/2016 blood culture pending. 2. The 09/22/2016 urine culture pending with positive urinalysis. IMAGIN. 09/22/2016 chest x-ray, no acute findings. 2. 09/22/2016 CT abdomen and pelvis with scrotal wall edema and bilateral hydroceles. Nonobstructive stone in the left kidney. Bilateral perinephric stranding. No evidence of intra-abdominal abscess. Small Bochdalek hernia in the right posterior hemidiaphragmatic leaflet. An 8 to 9 cm right renal cyst. Thickening of the urinary bladder wall consistent with cystitis. Status post transurethral resection of prostate. ASSESSMENT: 1. Scrotal cellulitis. The CT abdomen and pelvis as above. 2. Probable complicated urinary tract infection/cystitis. Urine culture is pending. CT abdomen and pelvis as above. 3. Leukocytosis, improved and afebrile. 4. Acute renal insufficiency, resolved. 5. No known drug allergies. 6. Full Code. PLAN: 1. Continue empiric IV vancomycin and cefepime day #1 of 10 pending cultures. 2. Follow up cultures. 3. Monitor CBC and temperatures. 4. Monitor BMP. Thank you. We will follow. Tree Quinones M.D. DR: MEGAN/JASON JOB#: [id number] CC: Ruddy Llamas M.D.; Fax#: [phone] Hunter M.D; Fax#: [phone]
[2016-09-23] MEDS: Vancomycin 1gm in D5W 275ml IVPB SCH (23:02)
[2016-09-24 00:27] VITALS: BP 120/78
[2016-09-24] MEDS: Cefepime HCl 2 GM in D5W 110 ML IV SCH (00:43)
[2016-09-24 04:16] VITALS: BP 107/62
[2016-09-24 08:01] VITALS: BP 127/83
[2016-09-24] MEDS: Ranolazine 500mg tab ORAL SCH (09:04)
[2016-09-24] MEDS: Aspirin EC 81mg tab ORAL SCH (09:05)
[2016-09-24] MEDS: Carvedilol 6.25mg Tab ORAL SCH ×2 (09:05→21:00)
[2016-09-24] MEDS: Amiodarone 200mg tab ORAL SCH (09:06)
[2016-09-24] MEDS: Heparin 5000 units/ml inj SUBQ SCH ×2 (09:08→22:29)
[2016-09-24 11:37] VITALS: BP 105/55
--- NOTE | 2016-09-24 14:04 | Infectious Diseases Prog Note ---
Assessment/Plan Assessment/Plan ASSESSMENT: 76 y/o male with: // Scrotal cellulitis - CT A/P: Scrotal wall edema and bilateral hydroceles // Probable complicated UTI / cystitis / L>R epididymitis - UCx S.aureus ( sensi pending ) - CT A/P: Nonobstructive stone in the left kidney. Bilateral perinephric stranding nonspecific. 8-9 cm right renal cyst. Thickening of the urinary bladder wall consistent with cystitis. - h/o TURP // Leukocytosis - improved, afebrile. No repeat CBC // STEPHANY - resolved // NKDA // Full Code PLAN: - continue empiric IV vancomycin, cefepime d# 2 / pending cultures. Ok to complete course with oral alternative, if sensitive - f/u cultures, adjust ABX accordingly - monitor CBC, temperatures - monitor BMP Subjective Allergies: Coded Allergies: No Known Allergies (Unverified , 08/09/12) Subjective remains afebrile. improved UCx S.aureus Objective Vital Signs Last 24 Hour Vital Signs Date Time Temp Pulse Resp B/P Pulse Ox O2 Delivery O2 Flow Rate FiO2 09/24/16 11:54 63 09/24/16 11:37 98.2 63 18 105/55 97 Room Air 09/24/16 09:05 82 127/83 09/24/16 08:01 98.2 82 18 127/83 98 Room Air 09/24/16 07:48 71 18 Room Air 09/24/16 07:40 81 09/24/16 04:16 98.5 70 19 107/62 96 Room Air 09/24/16 04:00 73 09/24/16 00:27 98.6 73 20 120/78 98 Room Air 09/24/16 00:00 75 09/23/16 20:31 71 125/73 09/23/16 20:00 73 09/23/16 20:00 98.2 71 18 125/73 98 Room Air 09/23/16 19:23 70 18 Room Air 09/23/16 16:00 98.6 66 18 105/61 97 Room Air 09/23/16 16:00 66 Height (Feet): 5 Height (Inches): 2.00 Weight (Pounds): 173 General Appearance: no acute distress Respiratory/Chest: no respiratory distress Cardiovascular: normal rate, regular rhythm Abdomen: normal bowel sounds, soft, non tender, non distended Microbiology Date/Time Source Procedure Growth Status 09/22/16 15:24 Blood Blood Culture - Preliminary NO GROWTH AFTER 24 HOURS Resulted 09/22/16 15:14 Blood Blood Culture - Preliminary NO GROWTH AFTER 24 HOURS Resulted 09/22/16 14:30 Urine,Clean Catch Urine Culture - Preliminary Staphylococcus Aureus Resulted Current Medications Medications (Trade) Dose Ordered Sig/Alonzo Route PRN Reason Start Time Stop Time Status Last Admin Dose Admin Acetaminophen (Tylenol) 650 mg Q4H PRN ORAL fever 09/22/16 22:00 10/22/16 21:59 Albuterol/ Ipratropium (DuoNeb 0.5-3(2.5)mg/3ml) 3 ml EVERY 4 HOURS PRN HHN Shortness of Breath 09/22/16 22:00 09/27/16 21:59 Amiodarone HCl (Cordarone) 200 mg DAILY ORAL 09/23/16 16:00 10/23/16 15:59 09/24/16 09:06 Aspirin (Ecotrin) 81 mg DAILY ORAL 09/23/16 16:00 10/23/16 15:59 09/24/16 09:05 Carvedilol (Coreg) 6.25 mg EVERY 12 HOURS ORAL 09/23/16 09:00 10/23/16 08:59 09/24/16 09:05 Cefepime HCl 2 gm/ Dextrose 110 ml @ 220 mls/hr Q24H IV 09/23/16 01:00 09/30/16 00:59 09/24/16 00:43 EZETIMIBE (Zetia) 10 mg BEDTIME ORAL 09/23/16 21:00 10/23/16 20:59 09/23/16 20:30 Finasteride (Proscar) 5 mg DAILY ORAL 09/23/16 16:00 10/23/16 15:59 09/24/16 09:05 Heparin Sodium (Porcine) (Heparin 5000 units/ml) 5,000 units EVERY 12 HOURS SUBQ 09/23/16 09:00 10/23/16 08:59 09/24/16 09:08 Ibuprofen (Motrin) 600 mg Q8H PRN ORAL For Pain 09/23/16 06:00 10/23/16 05:59 09/23/16 06:20 Levothyroxine Sodium (Synthroid) 75 mcg ACBREAKFAST ORAL 09/23/16 06:30 10/23/16 06:29 09/24/16 06:30 Morphine Sulfate (Morphine Sulfate) 2 mg EVERY 4 HOURS PRN IVP Moderate Pain (Pain Scale 4-6) 09/22/16 22:00 09/29/16 21:59 Nitroglycerin (Ntg) 0.4 mg Q5M x 3 DOSES PRN SL Prn Chest Pain 09/22/16 22:00 10/22/16 21:59 Ondansetron HCl (Zofran) 4 mg Q6H PRN IVP Nausea & Vomiting 09/22/16 22:00 10/22/16 21:59 Patient Own Medication (Patient's Own Med) 1 ea Q12HR ORAL 09/23/16 21:00 10/23/16 20:59 Polyethylene Glycol (Miralax) 17 gm DAILYPRN PRN ORAL Constipation 09/22/16 22:00 10/22/16 21:59 Ranolazine (Ranexa ER 500mg) 500 mg EVERY 12 HOURS ORAL 09/23/16 09:00 10/23/16 08:59 09/24/16 09:04 Sodium Chloride (Sodium Chloride 1000ml bag) 1,000 ml @ 50 mls/hr Q20H IVLG 09/23/16 01:00 10/23/16 00:59 09/23/16 20:30 Temazepam (Restoril) 15 mg HSPRN PRN ORAL Insomnia 09/22/16 22:00 09/29/16 21:59 Vancomycin HCl 1 ea 1 ea DAILY PRN MISC Per rx protocol 09/22/16 22:30 10/22/16 22:29 Vancomycin HCl 1 gm/Dextrose 275 ml @ 183.708 mls/hr Q24H IVPB 09/22/16 22:30 09/27/16 22:29 09/23/16 23:02 BELÉN JONES Sep 24, 2016 14:04
--- NOTE | 2016-09-24 14:11 | Cardiology Progress Note ---
Assessment/Plan Assessment/Plan epididimytis per urology cad hs of pci adn cabg icm ef 33% paf hyperlipidmia hypothyroidm rewume home meds no need for med change at this time will follow contineu abx scrotal elevated [id number] Objective Last 24 Hour Vital Signs Date Time Temp Pulse Resp B/P Pulse Ox O2 Delivery O2 Flow Rate FiO2 09/24/16 11:54 63 09/24/16 11:37 98.2 63 18 105/55 97 Room Air 09/24/16 09:05 82 127/83 09/24/16 08:01 98.2 82 18 127/83 98 Room Air 09/24/16 07:48 71 18 Room Air 09/24/16 07:40 81 09/24/16 04:16 98.5 70 19 107/62 96 Room Air 09/24/16 04:00 73 09/24/16 00:27 98.6 73 20 120/78 98 Room Air 09/24/16 00:00 75 09/23/16 20:31 71 125/73 09/23/16 20:00 73 09/23/16 20:00 98.2 71 18 125/73 98 Room Air 09/23/16 19:23 70 18 Room Air 09/23/16 16:00 98.6 66 18 105/61 97 Room Air 09/23/16 16:00 66 Intake and Output 09/23/16 09/24/16 19:00 07:00 Intake Total 790 ml 1025.000 ml Output Total 700 ml Balance 790 ml 325.000 ml Intake Oral 240 ml 240 ml IV Total 550 ml 785.000 ml Output Urine Total 700 ml # Voids 2 1 Microbiology Date/Time Source Procedure Growth Status 09/22/16 15:24 Blood Blood Culture - Preliminary NO GROWTH AFTER 24 HOURS Resulted 09/22/16 15:14 Blood Blood Culture - Preliminary NO GROWTH AFTER 24 HOURS Resulted 09/22/16 14:30 Urine,Clean Catch Urine Culture - Preliminary Staphylococcus Aureus Resulted ASHLEE EDGAR Sep 24, 2016 14:10
[2016-09-24] MEDS: ENTRESTO ORAL SCH ×2 (14:19→14:20)
--- NOTE | 2016-09-24 15:01 | Pulmonology Progress Note ---
Assessment/Plan Problems: (1) Cellulitis of scrotum (2) Prostate hypertrophy (3) Urinary tract infection (4) Hypertension (5) Arrhythmia Assessment/Plan Assessment/Plan improving Staph in urine, sensitivy pendin continue current cardiac meds Subjective ROS Limited/Unobtainable: No Constitutional: Reports: no symptoms HEENT: Repors: no symptoms Genitourinary: Reports: frequency, nocturia, other - scrotal swelling, urgency Allergies: Coded Allergies: No Known Allergies (Unverified , 08/09/12) Objective Last 24 Hour Vital Signs Date Time Temp Pulse Resp B/P Pulse Ox O2 Delivery O2 Flow Rate FiO2 09/24/16 11:54 63 09/24/16 11:37 98.2 63 18 105/55 97 Room Air 09/24/16 09:05 82 127/83 09/24/16 08:01 98.2 82 18 127/83 98 Room Air 09/24/16 07:48 71 18 Room Air 09/24/16 07:40 81 09/24/16 04:16 98.5 70 19 107/62 96 Room Air 09/24/16 04:00 73 09/24/16 00:27 98.6 73 20 120/78 98 Room Air 09/24/16 00:00 75 09/23/16 20:31 71 125/73 09/23/16 20:00 73 09/23/16 20:00 98.2 71 18 125/73 98 Room Air 09/23/16 19:23 70 18 Room Air 09/23/16 16:00 98.6 66 18 105/61 97 Room Air 09/23/16 16:00 66 Intake and Output 09/23/16 09/24/16 19:00 07:00 Intake Total 790 ml 1025.000 ml Output Total 700 ml Balance 790 ml 325.000 ml Intake Oral 240 ml 240 ml IV Total 550 ml 785.000 ml Output Urine Total 700 ml # Voids 2 1 General Appearance: no acute distress HEENT: normocephalic, atraumatic, PERRL Respiratory/Chest: chest wall non-tender, decreased breath sounds, accessory muscle use Cardiovascular: normal peripheral pulses, normal rate, regular rhythm, no JVD Abdomen: normal bowel sounds, soft, non tender, no organomegaly Genitourinary: other - scrotal swelling Skin: rash, lesions Neurologic/Psychiatric: 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, no motor/sensory deficits Microbiology Date/Time Source Procedure Growth Status 09/22/16 15:24 Blood Blood Culture - Preliminary NO GROWTH AFTER 24 HOURS Resulted 09/22/16 15:14 Blood Blood Culture - Preliminary NO GROWTH AFTER 24 HOURS Resulted 09/22/16 14:30 Urine,Clean Catch Urine Culture - Preliminary Staphylococcus Aureus Resulted Current Medications Medications (Trade) Dose Ordered Sig/Alonzo Route PRN Reason Start Time Stop Time Status Last Admin Dose Admin Acetaminophen (Tylenol) 650 mg Q4H PRN ORAL fever 09/22/16 22:00 10/22/16 21:59 Albuterol/ Ipratropium (DuoNeb 0.5-3(2.5)mg/3ml) 3 ml EVERY 4 HOURS PRN HHN Shortness of Breath 09/22/16 22:00 09/27/16 21:59 Amiodarone HCl (Cordarone) 100 mg DAILY ORAL 09/25/16 09:00 10/25/16 08:59 UNV Aspirin (Ecotrin) 81 mg DAILY ORAL 09/23/16 16:00 10/23/16 15:59 09/24/16 09:05 Carvedilol (Coreg) 6.25 mg EVERY 12 HOURS ORAL 09/23/16 09:00 10/23/16 08:59 09/24/16 09:05 Cefepime HCl/ Dextrose (Maxipime/D5W) 110 ml @ 220 mls/hr Q24H IV 09/23/16 01:00 09/30/16 00:59 09/24/16 00:43 EZETIMIBE (Zetia) 10 mg BEDTIME ORAL 09/23/16 21:00 10/23/16 20:59 09/23/16 20:30 Finasteride (Proscar) 5 mg DAILY ORAL 09/23/16 16:00 10/23/16 15:59 09/24/16 09:05 Heparin Sodium (Porcine) (Heparin 5000 units/ml) 5,000 units EVERY 12 HOURS SUBQ 09/23/16 09:00 10/23/16 08:59 09/24/16 09:08 Ibuprofen (Motrin) 600 mg Q8H PRN ORAL For Pain 09/23/16 06:00 10/23/16 05:59 09/23/16 06:20 Irbesartan (Avapro) 75 mg BID ORAL 09/24/16 18:00 10/24/16 17:59 UNV Levothyroxine Sodium (Synthroid) 75 mcg ACBREAKFAST ORAL 09/23/16 06:30 10/23/16 06:29 09/24/16 06:30 Morphine Sulfate (Morphine Sulfate) 2 mg EVERY 4 HOURS PRN IVP Moderate Pain (Pain Scale 4-6) 09/22/16 22:00 09/29/16 21:59 Nitroglycerin (Ntg) 0.4 mg Q5M x 3 DOSES PRN SL Prn Chest Pain 09/22/16 22:00 10/22/16 21:59 Ondansetron HCl (Zofran) 4 mg Q6H PRN IVP Nausea & Vomiting 09/22/16 22:00 10/22/16 21:59 Polyethylene Glycol (Miralax) 17 gm DAILYPRN PRN ORAL Constipation 09/22/16 22:00 10/22/16 21:59 Ranolazine (Ranexa ER 500mg) 1,000 mg EVERY 12 HOURS ORAL 09/24/16 21:00 10/24/16 20:59 UNV Temazepam (Restoril) 15 mg HSPRN PRN ORAL Insomnia 09/22/16 22:00 09/29/16 21:59 Vancomycin HCl 1 ea 1 ea DAILY PRN MISC Per rx protocol 09/22/16 22:30 10/22/16 22:29 Vancomycin HCl 1 gm/Dextrose 275 ml @ 183.708 mls/hr Q24H IVPB 09/22/16 22:30 09/27/16 22:29 09/23/16 23:02 NENA DWYER Sep 24, 2016 15:01
--- NOTE | 2016-09-24 15:16 | Pulmonology Progress Note ---
Assessment/Plan Problems: (1) Cellulitis of scrotum (2) Prostate hypertrophy (3) Urinary tract infection (4) Hypertension (5) Arrhythmia Assessment/Plan improving Staph in urine, sensitivy pendin continue current cardiac meds Subjective ROS Limited/Unobtainable: No Interval Events: doing better, swelling less Allergies: Coded Allergies: No Known Allergies (Unverified , 08/09/12) Objective Last 24 Hour Vital Signs Date Time Temp Pulse Resp B/P Pulse Ox O2 Delivery O2 Flow Rate FiO2 09/24/16 11:54 63 09/24/16 11:37 98.2 63 18 105/55 97 Room Air 09/24/16 09:05 82 127/83 09/24/16 08:01 98.2 82 18 127/83 98 Room Air 09/24/16 07:48 71 18 Room Air 09/24/16 07:40 81 09/24/16 04:16 98.5 70 19 107/62 96 Room Air 09/24/16 04:00 73 09/24/16 00:27 98.6 73 20 120/78 98 Room Air 09/24/16 00:00 75 09/23/16 20:31 71 125/73 09/23/16 20:00 73 09/23/16 20:00 98.2 71 18 125/73 98 Room Air 09/23/16 19:23 70 18 Room Air 09/23/16 16:00 98.6 66 18 105/61 97 Room Air 09/23/16 16:00 66 Intake and Output 09/23/16 09/24/16 19:00 07:00 Intake Total 790 ml 1025.000 ml Output Total 700 ml Balance 790 ml 325.000 ml Intake Oral 240 ml 240 ml IV Total 550 ml 785.000 ml Output Urine Total 700 ml # Voids 2 1 General Appearance: WD/WN HEENT: normocephalic, atraumatic Respiratory/Chest: chest wall non-tender, lungs clear Cardiovascular: normal peripheral pulses, normal rate Abdomen: normal bowel sounds, soft, non tender Extremities: no cyanosis, no clubbing Neurologic/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: 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 II-XII grossly normal, no motor/sensory deficits Microbiology Date/Time Source Procedure Growth Status 09/22/16 15:24 Blood Blood Culture - Preliminary NO GROWTH AFTER 24 HOURS Resulted 09/22/16 15:14 Blood Blood Culture - Preliminary NO GROWTH AFTER 24 HOURS Resulted 09/22/16 14:30 Urine,Clean Catch Urine Culture - Preliminary Staphylococcus Aureus Resulted Current Medications Medications (Trade) Dose Ordered Sig/Alonzo Route PRN Reason Start Time Stop Time Status Last Admin Dose Admin Acetaminophen (Tylenol) 650 mg Q4H PRN ORAL fever 09/22/16 22:00 10/22/16 21:59 Albuterol/ Ipratropium (DuoNeb 0.5-3(2.5)mg/3ml) 3 ml EVERY 4 HOURS PRN HHN Shortness of Breath 09/22/16 22:00 09/27/16 21:59 Amiodarone HCl (Cordarone) 100 mg DAILY ORAL 09/25/16 09:00 10/25/16 08:59 Aspirin (Ecotrin) 81 mg DAILY ORAL 09/23/16 16:00 10/23/16 15:59 09/24/16 09:05 Carvedilol (Coreg) 6.25 mg EVERY 12 HOURS ORAL 09/23/16 09:00 10/23/16 08:59 09/24/16 09:05 Cefepime HCl/ Dextrose (Maxipime/D5W) 110 ml @ 220 mls/hr Q24H IV 09/23/16 01:00 09/30/16 00:59 09/24/16 00:43 EZETIMIBE (Zetia) 10 mg BEDTIME ORAL 09/23/16 21:00 10/23/16 20:59 09/23/16 20:30 Finasteride (Proscar) 5 mg DAILY ORAL 09/23/16 16:00 10/23/16 15:59 09/24/16 09:05 Heparin Sodium (Porcine) (Heparin 5000 units/ml) 5,000 units EVERY 12 HOURS SUBQ 09/23/16 09:00 10/23/16 08:59 09/24/16 09:08 Ibuprofen (Motrin) 600 mg Q8H PRN ORAL For Pain 09/23/16 06:00 10/23/16 05:59 09/23/16 06:20 Irbesartan (Avapro) 75 mg BID ORAL 09/24/16 18:00 10/24/16 17:59 Levothyroxine Sodium (Synthroid) 75 mcg ACBREAKFAST ORAL 09/23/16 06:30 10/23/16 06:29 09/24/16 06:30 Morphine Sulfate (Morphine Sulfate) 2 mg EVERY 4 HOURS PRN IVP Moderate Pain (Pain Scale 4-6) 09/22/16 22:00 09/29/16 21:59 Nitroglycerin (Ntg) 0.4 mg Q5M x 3 DOSES PRN SL Prn Chest Pain 09/22/16 22:00 10/22/16 21:59 Ondansetron HCl (Zofran) 4 mg Q6H PRN IVP Nausea & Vomiting 09/22/16 22:00 10/22/16 21:59 Polyethylene Glycol (Miralax) 17 gm DAILYPRN PRN ORAL Constipation 09/22/16 22:00 10/22/16 21:59 Ranolazine (Ranexa ER 500mg) 500 mg QHS ORAL 09/24/16 21:00 10/24/16 20:59 Ranolazine (Ranexa ER 500mg) 1,000 mg DAILY ORAL 09/25/16 09:00 10/25/16 08:59 Temazepam (Restoril) 15 mg HSPRN PRN ORAL Insomnia 09/22/16 22:00 09/29/16 21:59 Vancomycin HCl 1 ea 1 ea DAILY PRN MISC Per rx protocol 09/22/16 22:30 10/22/16 22:29 Vancomycin HCl 1 gm/Dextrose 275 ml @ 183.708 mls/hr Q24H IVPB 09/22/16 22:30 09/27/16 22:29 09/23/16 23:02 NENA DWYER Sep 24, 2016 15:16
[2016-09-24 16:00] VITALS: BP 107/62
[2016-09-24] MEDS ORDERED: Nitroglycerin Subl 0.4mg tab (Bottle Of 25) SL PRN (17:30)
--- NOTE | 2016-09-24 19:18 | Consultation ---
DATE OF CONSULTATION: 09/24/2016 CARDIOLOGY CONSULTATION CONSULTING PHYSICIAN: Milton Bloom M.D. REFERRING PHYSICIAN: Ruddy Llamas M.D. REASON FOR EVALUATION: Cardiomyopathy. HISTORY OF PRESENT ILLNESS: This is an elderly gentleman, who has been admitted to the hospital at [facility] because of pain in his groin area and this consultation is requested because of his extensive cardiac history to help manage his cardiac medications and care. The patient has been having scrotal swelling, it was likely epididymitis felt to be worse on the left than on the right with reactive swelling and has been admitted to the hospital with scrotal elevation and antibiotics for two weeks and has been evaluated. He has an extensive cardiac history. He really does not have any chest pain at the present time. No PND. No orthopnea. No palpitations. He has one pillow usage at home. No dizziness or lightheadedness on standing. No pain, pressure, tightness, or heaviness in his chest. PAST MEDICAL HISTORY: Extensive and includes history of coronary artery disease. He had back in 2012 for which he underwent PCI for it. He has had history of coronary artery bypass grafting in the . He does have history of paroxysmal episodes of atrial fibrillation, hyperlipidemia, gastroesophageal reflux disease, and hypothyroidism. He had undergone glaucoma and cataract surgery as well as hernia repair and colonoscopy. MEDICATIONS: His medications at home include amiodarone 100 mg a day, one tablet twice a day, Crestor 40 mg, Zetia 10 mg, finasteride 5 mg, aspirin 81 mg , Coreg 6.25 mg twice a day, Synthroid 75 mcg, and he takes Ranexa 1000 mg in the morning and 500 mg in the evening. He also takes timolol eyedrops. ALLERGIES: He has no known drug allergies. SOCIAL HISTORY: He does not smoke. He does not drink alcoholic beverages. No drug use. REVIEW OF SYSTEMS: Gastrointestinal: Denies any nausea, vomiting, diarrhea, or constipation. Genitourinary: He does have some swelling and pain in the perineum area is what he describes. Pulmonary: Negative. Constitutional: Negative. Neurologic: Negative. PHYSICAL EXAMINATION: GENERAL: Shows to be elderly gentleman in no apparent distress. HEENT: Unremarkable. NECK: Supple. No jugular venous distention. CARDIAC: S1 is normal. S2 is normal. Regular rate and rhythm. Systolic ejection murmur noted. No RV lift, heaves, thrills, or gallops noted. ABDOMEN: Soft and nontender. Positive bowel sounds. EXTREMITIES: There is no clubbing, cyanosis, nor is there any edema. NEUROLOGIC: He is awake, alert, responsive, in no apparent respiratory distress. LABORATORY AND DIAGNOSTIC DATA: His laboratory values, a perfusion study that was performed in September 2015 showed defect. 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 His data, his telemetry showed sinus rhythm with bundle-branch conduction defect in addition to some artifact. His echocardiogram showed left bundle conduction with sinus rhythm and on repeat EKG that has not changed. His white count 12.1, hemoglobin 8.8 down from 11.7, and platelet count of 161,000. Sodium 138, potassium 3.4, chloride 101, bicarbonate 22, BUN of 21, creatinine 1.0, and glucose of 140. His calcium is 7.7. Liver function tests are relatively intact except for albumin of 3.2. INR 1.4 and PTT of 36. His urinalysis has 60-80 WBC, 10-15 RBC, and 3+ leukocyte esterase. Blood cultures are pending, so far is negative. Urine is Staphylococcus aureus and chest x-ray was performed, which showed no acute disease. CT scan of the abdomen and pelvis was performed and showed scrotal wall edema, bilateral hydrocele, nonobstructive stone in the left kidney, bilateral perinephric stranding nonspecific, no evidence of intraabdominal abscess, small Bochdalek hernia at right posterior hemidiaphragm leaflet, 8-9 cm renal cyst, thickening of the bladder wall consistent with cystitis, status post TURP. ASSESSMENT: 1. Epididymitis with scrotal swelling. 2. Coronary artery disease history, status post percutaneous coronary intervention. 3. Ischemic cardiomyopathy. 4. Recent transurethral resection of prostate. 5. Hyperlipidemia. 6. Hypothyroidism. 7. Paroxysmal episodes of atrial fibrillation. 8. Benign prostatic hypertrophy. 9. Anemia. RECOMMENDATIONS: Dr. Llamas, this patient was seen in cardiac consultation. The patient has had a drop in his hemoglobin, although that may be an erroneous level and that should be checked. From cardiac standpoint, he does not have any symptoms at this time, although he needs to be started back on his medications and he is being treated for the epididymitis with intravenous antibiotics for scrotal swelling. Cardiac-plunkett, he remains stable. His medication will not be changed unless issues arise. He is saturating at 100%. His last blood pressure was 105/55 with heart rate of 63 and temperature of 98.2 degrees. Milton Bloom M.D. DR: [place] JOB#: [id number] CC:
[2016-09-24 20:00] VITALS: BP 104/60
[2016-09-24] MEDS ORDERED: Ranolazine 500mg tab ORAL SCH ×2 (21:00)
[2016-09-24] MEDS ORDERED: Morphine Sulfate 2mg/ml Inj IVP PRN (21:00)
[2016-09-24] MEDS ORDERED: DuoNeb 0.5-3(2.5)mg/3ml neb HHN PRN (21:00)
[2016-09-24] MEDS ORDERED: Miralax 17gm pkt ORAL PRN (22:00)
[2016-09-24] MEDS ORDERED: Vancomycin 1 GM in D5W 275 ML IVPB SCH (22:00)
[2016-09-25] VITALS: BP 110/67
[2016-09-25] MEDS ORDERED: Cefepime HCl 2 GM in D5W 110 ML IV SCH (01:00)
[2016-09-25 04:00] VITALS: BP 115/61
[2016-09-25 06:51] LABS: BASOPHILS % (AUTO) 0.8 % (0.0-2.0); EOSINOPHILS % (AUTO) 4.6 % (0.0-3.0); LYMPHOCYTES % (AUTO) 23.6 % (20.0-45.0); MEAN CORPUSCULAR HEMOGLOBIN 30.3 PG (27.0-31.0); MEAN CORPUSCULAR HGB CONC 31.9 G/DL (32.0-36.0); MEAN CORPUSCULAR VOLUME 95 FL (80-99); MEAN PLATELET VOLUME 7.2 FL (6.5-10.1); MONOCYTES % (AUTO) 11.8 % (1.0-10.0); NEUTROPHILS % (AUTO) 59.3 % (45.0-75.0); PLATELET COUNT 185 K/UL (150-450); RED BLOOD COUNT 3.09 M/UL (4.70-6.10); RED CELL DISTRIBUTION WIDTH 13.2 % (11.6-14.8); WHITE BLOOD COUNT 8.8 K/UL (4.8-10.8)
[2016-09-25 07:07] LABS: INR 1.2 (0.9-1.1); PROTHROMBIN TIME 12.4 SEC (9.30-11.50)
[2016-09-25 07:24] LABS: ALANINE AMINOTRANSFERASE 15 U/L (3-41); ANION GAP 12 (5-15); ASPARTATE AMINO TRANSFERASE 16 U/L (5-40); CALCIUM 8.2 mg/dL (8.6-10.2); CARBON DIOXIDE 27 mEQ/L (20-30); CHLORIDE 105 mEQ/L (98-107); CREATININE 0.9 mg/dL (0.7-1.2); HEMOLYSIS 8; PHOSPHORUS 2.9 mg/dL (2.5-4.8); POTASSIUM 3.3 mEQ/L (3.4-4.9); SODIUM 144 mEQ/L (135-145); TOTAL PROTEIN 5.7 g/dL (6.6-8.7)
[2016-09-25 07:28] LABS: LACTATE DEHYDROGENASE 206 U/L (135-230)
[2016-09-25 07:29] LABS: HEMOLYSIS 3; IRON 26 ug/dL (59-158); TOTAL IRON BINDING CAPACITY 194 ug/dL (250-400)
[2016-09-25 08:00] VITALS: BP 105/62
[2016-09-25] MEDS: Heparin 5000 units/ml inj SUBQ SCH (08:50)
[2016-09-25 08:56] LABS: ABG ALLEN TEST POSITIVE; ABG BASE EXCESS 1.9; ABG PCO2 38.7 mmHg (35.0-45.0)
[2016-09-25] MEDS: Carvedilol 6.25mg Tab ORAL SCH (09:00)
[2016-09-25] MEDS ORDERED: Amiodarone 200mg tab ORAL SCH ×2 (09:00)
[2016-09-25] MEDS ORDERED: Ranolazine 500mg tab ORAL SCH ×2 (09:00)
[2016-09-25] MEDS ORDERED: Aspirin EC 81mg tab ORAL SCH (09:00)
[2016-09-25 09:25] LABS: ERYTHROCYTE SEDIMENTATION RATE 87 MM/HR (0-20)
--- NOTE | 2016-09-25 11:21 | Diagnostic Imaging Report ---
Indication: Dyspnea Comparison: 09/22/16 A single view chest radiograph was obtained. Findings: No definite infiltrate or pulmonary vascular congestion identified. The heart is enlarged. The aorta is mildly enlarged consistent with atherosclerotic vascular disease. Sternotomy is noted. The bones are osteopenic. Impression: No acute disease
[2016-09-25 12:00] VITALS: BP 120/65
[2016-09-25 12:36] LABS: RETICULOCYTE COUNT 1.4 % (0.0-2.0)
[2016-09-25 13:22] LABS: BAND NEUTROPHILS % (MANUAL) 0 % (0-8); BASOPHILS % (MANUAL) 0 % (0-2); EOSINOPHILS % (MANUAL) 4 % (0-3); LYMPHOCYTES % (MANUAL) 30 % (20-45); NEUTROPHILS % (MANUAL) 57 % (45-75); PLATELET ESTIMATE ADEQUATE; PLATELET MORPHOLOGY NORMAL; TOTAL CELLS COUNTED 100
[2016-09-25 13:24] LABS: HYPOCHROMASIA 1+
[2016-09-25 13:29] LABS: PATH BLOOD SMEAR/OMC SENT TO PATHOLOGIST
--- NOTE | 2016-09-25 14:31 | Infectious Diseases Prog Note ---
Assessment/Plan Assessment/Plan ASSESSMENT: 76 y/o male with: // Probable complicated UTI / cystitis / L>R epididymitis - UCx MSSA - CT A/P: Nonobstructive stone in the left kidney. Bilateral perinephric stranding nonspecific. 8-9 cm right renal cyst. Thickening of the urinary bladder wall consistent with cystitis. - h/o TURP // Scrotal cellulitis - CT A/P: Scrotal wall edema and bilateral hydroceles // Leukocytosis - resolved, afebrile // STEPHANY - resolved // NKDA // Full Code PLAN: - ok to DC on PO bactrim x11d from ID standpoint - Rx on chart, reconciled. De- escalated IV vancomycin, cefepime d# 3 to ancef d# 1 ( ABX d# 3 / ) while still inpt - f/u final cultures - monitor CBC, temperatures - monitor BMP Subjective Allergies: Coded Allergies: No Known Allergies (Unverified , 08/09/12) Subjective remains afebrile. improved UCx MSSA Objective Vital Signs Last 24 Hour Vital Signs Date Time Temp Pulse Resp B/P Pulse Ox O2 Delivery O2 Flow Rate FiO2 09/25/16 12:00 97.0 62 18 120/65 96 Room Air 09/25/16 08:00 96.8 68 18 105/62 98 Room Air 09/25/16 07:23 66 18 Room Air 09/25/16 04:00 98.6 59 20 115/61 100 Room Air 09/25/16 00:00 98.4 66 18 110/67 97 Room Air 09/24/16 20:00 98.2 66 18 104/60 93 Room Air 09/24/16 19:30 68 20 Room Air 21 09/24/16 17:15 107/62 09/24/16 16:00 99.0 64 21 107/62 100 Room Air Height (Feet): 5 Height (Inches): 2.00 Weight (Pounds): 173 General Appearance: no acute distress Respiratory/Chest: no respiratory distress Cardiovascular: normal rate, regular rhythm Abdomen: normal bowel sounds, soft, non tender, non distended Microbiology Date/Time Source Procedure Growth Status 09/22/16 15:24 Blood Blood Culture - Preliminary NO GROWTH AFTER 48 HOURS Resulted 09/22/16 15:14 Blood Blood Culture - Preliminary NO GROWTH AFTER 48 HOURS Resulted 09/22/16 14:30 Urine,Clean Catch Urine Culture - Final Staphylococcus Aureus Complete Laboratory Tests Test 09/25/16 05:10 09/25/16 08:50 White Blood Count 8.8 K/UL (4.8-10.8) Red Blood Count 3.09 M/UL (4.70-6.10) L Hemoglobin 9.4 G/DL (14.2-18.0) L Hematocrit 29.4 % (42.0-52.0) L Mean Corpuscular Volume 95 FL (80-99) Mean Corpuscular Hemoglobin 30.3 PG (27.0-31.0) Mean Corpuscular Hemoglobin Concent 31.9 G/DL (32.0-36.0) L Red Cell Distribution Width 13.2 % (11.6-14.8) Platelet Count 185 K/UL (150-450) Mean Platelet Volume 7.2 FL (6.5-10.1) Neutrophils (%) (Auto) 59.3 % (45.0-75.0) Lymphocytes (%) (Auto) 23.6 % (20.0-45.0) Monocytes (%) (Auto) 11.8 % (1.0-10.0) H Eosinophils (%) (Auto) 4.6 % (0.0-3.0) H Basophils (%) (Auto) 0.8 % (0.0-2.0) Differential Total Cells Counted 100 Neutrophils % (Manual) 57 % (45-75) Lymphocytes % (Manual) 30 % (20-45) Monocytes % (Manual) 9 % (1-10) Eosinophils % (Manual) 4 % (0-3) H Basophils % (Manual) 0 % (0-2) Band Neutrophils 0 % (0-8) Platelet Estimate Adequate Platelet Morphology Normal Hypochromasia 1+ Erythrocyte Sedimentation Rate 87 MM/HR (0-20) H Reticulocyte Count 1.4 % (0.0-2.0) Prothrombin Time 12.4 SEC (9.30-11.50) H Prothromb Time International Ratio 1.2 (0.9-1.1) H Activated Partial Thromboplast Time 36 SEC (23-33) H Sodium Level 144 mEQ/L (135-145) Potassium Level 3.3 mEQ/L (3.4-4.9) L Chloride Level 105 mEQ/L (98-107) Carbon Dioxide Level 27 mEQ/L (20-30) Anion Gap 12 (5-15) Blood Urea Nitrogen 12 mg/dL (7-23) Creatinine 0.9 mg/dL (0.7-1.2) Estimat Glomerular Filtration Rate mL/min (>60) Glucose Level 112 mg/dL (74-106) H Calcium Level 8.2 mg/dL (8.6-10.2) L Phosphorus Level 2.9 mg/dL (2.5-4.8) Magnesium Level 2.0 mg/dL (1.7-2.5) Iron Level 26 ug/dL (59-158) L Total Iron Binding Capacity 194 ug/dL (250-400) L Percent Iron Saturation 13 % (15-50) L Unsaturated Iron Binding 168 ug/dL (112-346) Total Bilirubin 0.4 mg/dL (0.0-1.2) Aspartate Amino Transf (AST/SGOT) 16 U/L (5-40) Alanine Aminotransferase (ALT/SGPT) 15 U/L (3-41) Alkaline Phosphatase 78 U/L (40-129) Lactate Dehydrogenase 206 U/L (135-230) Total Protein 5.7 g/dL (6.6-8.7) L Albumin 2.9 g/dL (3.5-5.2) L Globulin 2.8 g/dL Albumin/Globulin Ratio 1.0 (1.0-2.7) Carcinoembryonic Antigen 0.9 ng/mL Vitamin B12 Level 455 pg/mL (211-946) Folate Pending Arterial Blood pH 7.440 (7.350-7.450) Arterial Blood Partial Pressure CO2 38.7 mmHg (35.0-45.0) Arterial Blood Partial Pressure O2 82.8 mmHg (75.0-100.0) Arterial Blood HCO3 26.1 mmol/L (22.0-26.0) H Arterial Blood Oxygen Saturation 95.7 % (92.0-98.0) Arterial Blood Base Excess 1.9 Waqar Test Positive Current Medications Medications (Trade) Dose Ordered Sig/Alonzo Route PRN Reason Start Time Stop Time Status Last Admin Dose Admin Acetaminophen (Tylenol) 650 mg Q4H PRN ORAL fever 09/24/16 18:00 10/24/16 17:59 Albuterol/ Ipratropium (DuoNeb 0.5-3(2.5)mg/3ml) 3 ml EVERY 4 HOURS PRN HHN Shortness of Breath 09/24/16 21:00 09/29/16 20:59 Amiodarone HCl (Cordarone) 100 mg DAILY ORAL 09/25/16 09:00 10/25/16 08:59 Aspirin (Ecotrin) 81 mg DAILY ORAL 09/25/16 09:00 10/25/16 08:59 Carvedilol (Coreg) 6.25 mg EVERY 12 HOURS ORAL 09/24/16 21:00 10/24/16 20:59 Cefepime HCl 2 gm/ Dextrose 110 ml @ 220 mls/hr Q24H IV 09/25/16 01:00 10/02/16 00:59 09/25/16 01:25 EZETIMIBE (Zetia) 10 mg BEDTIME ORAL 09/24/16 21:00 10/24/16 20:59 Finasteride (Proscar) 5 mg DAILY ORAL 09/25/16 09:00 10/25/16 08:59 Heparin Sodium (Porcine) (Heparin 5000 units/ml) 5,000 units EVERY 12 HOURS SUBQ 09/24/16 21:00 10/24/16 20:59 09/25/16 08:50 Ibuprofen (Motrin) 600 mg Q8H PRN ORAL Mild Pain (Pain Scale 1-3) 09/24/16 22:00 10/24/16 21:59 09/24/16 22:41 Irbesartan (Avapro) 75 mg BID ORAL 09/24/16 18:00 10/24/16 17:59 Levothyroxine Sodium (Synthroid) 75 mcg ACBREAKFAST ORAL 09/25/16 06:30 10/25/16 06:29 09/25/16 06:21 Morphine Sulfate (Morphine Sulfate) 2 mg EVERY 4 HOURS PRN IVP Moderate Pain (Pain Scale 4-6) 09/24/16 21:00 10/01/16 20:59 Nitroglycerin (Ntg) 0.4 mg Q5M x 3 DOSES PRN SL Prn Chest Pain 09/24/16 17:30 10/24/16 17:29 Ondansetron HCl (Zofran) 4 mg Q6H PRN IVP Nausea & Vomiting 09/24/16 22:00 10/24/16 21:59 Polyethylene Glycol (Miralax) 17 gm DAILYPRN PRN ORAL Constipation 09/24/16 22:00 10/24/16 21:59 Ranolazine (Ranexa ER 500mg) 500 mg QHS ORAL 09/24/16 21:00 10/24/16 20:59 Ranolazine (Ranexa ER 500mg) 1,000 mg DAILY ORAL 09/25/16 09:00 10/25/16 08:59 Temazepam (Restoril) 15 mg HSPRN PRN ORAL Insomnia 09/24/16 22:00 10/01/16 21:59 Vancomycin HCl (Vanco rx to dose) 1 ea DAILY PRN MISC Per rx protocol 09/25/16 09:00 10/25/16 08:59 Vancomycin HCl/ Dextrose (Vancomycin/D5W) 275 ml @ 183.708 mls/hr Q24H IVPB 09/24/16 22:00 09/29/16 21:59 09/24/16 22:30 BELÉN JONES Sep 25, 2016 14:31
[2016-09-25 16:00] VITALS: BP 116/72
[2016-09-25 18:00] VITALS: BP 116/72
[2016-09-25] MEDS ORDERED: Tubing IV Secondary IV ONE ×2 (19:14)
[2016-09-25] MEDS ORDERED: NS 550ML IV ONE (19:14)
[2016-09-25] MEDS ORDERED: NS 275ml ONE (19:14)
--- NOTE | 2016-09-25 21:27 | Pulmonology Progress Note ---
Assessment/Plan Problems: (1) Cellulitis of scrotum (2) Prostate hypertrophy (3) Urinary tract infection (4) Hypertension (5) Arrhythmia Assessment/Plan improving Staph in urine, sensitivy pendin continue current cardiac meds Subjective ROS Limited/Unobtainable: No Constitutional: Reports: anorexia, chills, fatigue, fever Genitourinary: Reports: dysuria, frequency, hematuria, nocturia, urgency Allergies: Coded Allergies: No Known Allergies (Unverified , 08/09/12) Objective Last 24 Hour Vital Signs Date Time Temp Pulse Resp B/P Pulse Ox O2 Delivery O2 Flow Rate FiO2 09/25/16 18:00 116/72 09/25/16 16:00 98.4 65 20 116/72 97 Room Air 09/25/16 12:00 97.0 62 18 120/65 96 Room Air 09/25/16 08:00 96.8 68 18 105/62 98 Room Air 09/25/16 07:23 66 18 Room Air 09/25/16 04:00 98.6 59 20 115/61 100 Room Air 09/25/16 00:00 98.4 66 18 110/67 97 Room Air Intake and Output 09/24/16 09/25/16 19:00 07:00 Intake Total 565 ml 220 ml Output Total 500 ml Balance 565 ml -280 ml Intake Oral 240 ml 220 ml IV Total 325 ml Output Urine Total 500 ml # Voids 2 3 General Appearance: no acute distress HEENT: normocephalic, atraumatic, PERRL Respiratory/Chest: chest wall non-tender, decreased breath sounds, accessory muscle use Cardiovascular: normal peripheral pulses, normal rate, regular rhythm, no JVD Abdomen: normal bowel sounds, soft, non tender, no organomegaly, no mass Genitourinary: other - 3+ scrotal swelling Extremities: no cyanosis Skin: rash, lesions Neurologic/Psychiatric: progressive care nurse II-XII grossly normal, no motor/sensory deficits Laboratory Tests 09/25/16 05:10: White Blood Count 8.8, Red Blood Count 3.09L, Hemoglobin 9.4L, Hematocrit 29.4L , Mean Corpuscular Volume 95, Mean Corpuscular Hemoglobin 30.3, Mean Corpuscular Hemoglobin Concent 31.9L, Red Cell Distribution Width 13.2, Platelet Count 185, Mean Platelet Volume 7.2, Neutrophils (%) (Auto) 59.3, Lymphocytes (%) (Auto) 23.6, Monocytes (%) (Auto) 11.8H, Eosinophils (%) (Auto) 4.6H, Basophils (%) (Auto) 0.8, Differential Total Cells Counted 100, Neutrophils % (Manual) 57, Lymphocytes % (Manual) 30, Monocytes % (Manual) 9, Eosinophils % (Manual) 4H, Basophils % (Manual) 0, Band Neutrophils 0, Platelet Estimate Adequate, Platelet Morphology Normal, Hypochromasia 1+, Erythrocyte Sedimentation Rate 87H, Reticulocyte Count 1.4, Prothrombin Time 12.4H, Prothromb Time International Ratio 1.2H, Activated Partial Thromboplast Time 36H , Sodium Level 144, Potassium Level 3.3L, Chloride Level 105, Carbon Dioxide Level 27, Anion Gap 12, Blood Urea Nitrogen 12, Creatinine 0.9, Estimat Glomerular Filtration Rate , Glucose Level 112H, Calcium Level 8.2L, Phosphorus Level 2.9, Magnesium Level 2.0, Iron Level 26L, Total Iron Binding Capacity 194L , Percent Iron Saturation 13L, Unsaturated Iron Binding 168, Total Bilirubin 0.4 , Aspartate Amino Transf (AST/SGOT) 16, Alanine Aminotransferase (ALT/SGPT) 15, Alkaline Phosphatase 78, Lactate Dehydrogenase 206, Total Protein 5.7L, Albumin 2.9L, Globulin 2.8, Albumin/Globulin Ratio 1.0, Carcinoembryonic Antigen 0.9, Vitamin B12 Level 455, Folate [Pending] 09/25/16 08:50: Arterial Blood pH 7.440, Arterial Blood Partial Pressure CO2 38.7, Arterial Blood Partial Pressure O2 82.8, Arterial Blood HCO3 26.1H, Arterial Blood Oxygen Saturation 95.7, Arterial Blood Base Excess 1.9, Waqar Test Positive Current Medications Medications (Trade) Dose Ordered Sig/Alonzo Route PRN Reason Start Time Stop Time Status Last Admin Dose Admin Acetaminophen (Tylenol) 650 mg Q4H PRN ORAL fever 09/24/16 18:00 10/24/16 17:59 Albuterol/ Ipratropium (DuoNeb 0.5-3(2.5)mg/3ml) 3 ml EVERY 4 HOURS PRN HHN Shortness of Breath 09/24/16 21:00 09/29/16 20:59 Amiodarone HCl (Cordarone) 100 mg DAILY ORAL 09/25/16 09:00 10/25/16 08:59 Aspirin (Ecotrin) 81 mg DAILY ORAL 09/25/16 09:00 10/25/16 08:59 Carvedilol (Coreg) 6.25 mg EVERY 12 HOURS ORAL 09/24/16 21:00 10/24/16 20:59 Cefazolin Sodium/ Dextrose (Ancef/D5W) 55 ml @ 110 mls/hr Q8HR IVPB 09/25/16 22:00 10/02/16 21:59 EZETIMIBE (Zetia) 10 mg BEDTIME ORAL 09/24/16 21:00 10/24/16 20:59 Finasteride (Proscar) 5 mg DAILY ORAL 09/25/16 09:00 10/25/16 08:59 Heparin Sodium (Porcine) (Heparin 5000 units/ml) 5,000 units EVERY 12 HOURS SUBQ 09/24/16 21:00 10/24/16 20:59 09/25/16 08:50 Ibuprofen (Motrin) 600 mg Q8H PRN ORAL Mild Pain (Pain Scale 1-3) 09/24/16 22:00 10/24/16 21:59 09/24/16 22:41 Irbesartan (Avapro) 75 mg BID ORAL 09/24/16 18:00 10/24/16 17:59 Levothyroxine Sodium (Synthroid) 75 mcg ACBREAKFAST ORAL 09/25/16 06:30 10/25/16 06:29 09/25/16 06:21 Morphine Sulfate (Morphine Sulfate) 2 mg EVERY 4 HOURS PRN IVP Moderate Pain (Pain Scale 4-6) 09/24/16 21:00 10/01/16 20:59 Nitroglycerin (Ntg) 0.4 mg Q5M x 3 DOSES PRN SL Prn Chest Pain 09/24/16 17:30 10/24/16 17:29 Ondansetron HCl (Zofran) 4 mg Q6H PRN IVP Nausea & Vomiting 09/24/16 22:00 10/24/16 21:59 Polyethylene Glycol (Miralax) 17 gm DAILYPRN PRN ORAL Constipation 09/24/16 22:00 10/24/16 21:59 Ranolazine (Ranexa ER 500mg) 500 mg QHS ORAL 09/24/16 21:00 10/24/16 20:59 Ranolazine (Ranexa ER 500mg) 1,000 mg DAILY ORAL 09/25/16 09:00 10/25/16 08:59 Temazepam 15 mg 15 mg HSPRN PRN ORAL Insomnia 09/24/16 22:00 10/01/16 21:59 NENA DWYER Sep 25, 2016 21:27
[2016-09-25] MEDS ORDERED: ceFAZolin sod 1 GM in D5W 55 ML IVPB SCH (22:00)
--- NOTE | 2016-09-26 16:30 | Discharge Summary ---
Discharge Summary Hospital Course Date of Admission Sep 22, 2016 at 15:15 Date of Discharge Sep 25, 2016 at 19:15 Admitting Diagnosis scrotal swelling, sepsis HPI Alex Arango is a 76 year old male who was admitted on Sep 22, 2016 at 15: 15 for Scrotal Swelling, Sepsis Hospital Course [id number] Discharge Discharge Disposition Patient left AMA Discharge Diagnoses: Sola Reynolds NP Sep 26, 2016 16:30
--- NOTE | 2016-09-27 09:08 | Discharge Summary 2 SIG ---
DATE OF ADMISSION: 09/22/2016 DATE OF DISCHARGE: 09/25/2016 CONSULTANTS: 1. Tree Quinones M.D. 2. Milton Bloom M.D. 3. Neal Yanes M.D. BRIEF HOSPITAL COURSE: The patient is a 76-year-old male with a history of arrhythmia, hypertension, and BPH, presented to ED complaining of increased scrotal swelling for the past three days with gradual onset of symptoms and had difficulty walking. He had a prior prostate surgery approximately one month ago. On evaluation, he was diagnosed to have scrotal cellulitis and was admitted for further evaluation. Urology was consulted. On CAT scan showed scrotal swelling with no free air or other ominous findings. Swelling worse on left than right. Swelling is reactive and was advised scrotal elevation and to continue antibiotic treatment. He was seen by Infectious Disease specialist, who initially started him on IV vancomycin and cefepime. Antibiotics were deescalated to continue p.o. Bactrim as outpatient. He was also seen by Dr. Bloom to evaluate cardiomyopathy. His telemetry data showed sinus rhythm with bundle-branch block conduction defect. Echocardiogram showed left bundle conduction with sinus rhythm. The patient was assessed to be stable cardiac plunkett. Cardiac medications were continued, however he signed out against medical advise. FINAL DIAGNOSES: 1. Cellulitis of the scrotum. 2. Epididymitis/orchitis. 3. Prostate hypertrophy. 4. Urinary tract infection. 5. Hypertension. 6. Arrhythmia. 7. Coronary artery disease with history of percutaneous coronary intervention and coronary artery bypass graft. 8. Ischemic cardiomyopathy. 9. Paroxysmal atrial fibrillation. 10. Hyperlipidemia. 11. Hypothyroidism Ruddy Llamas M.D. I have been assigned to dictate discharge summary on this account and I was not involved in the patient's management. Sola Reynolds N.P. DR: Gene JOB#: [id number] CC: FLAVIA
[2016-09-27 14:06] LABS: OTHERS PATHOLOGIST COMMENT
== END 2016-09-25 19:15 | disposition left against medical advice (07) | DRG 728 ==
LOC: ENRESERVDT → ENRESERVTM → EMR 14:19 → 2E 15:15 → EDBEDREQ 20:11 → 4W 09-24 18:15
DX: N49.2 Inflammatory disorders of scrotum (principal); I48.0 Paroxysmal atrial fibrillation; D64.9 Anemia, unspecified; I25.10 Atherosclerotic heart disease of native coronary artery without angina pectoris; N30.90 Cystitis, unspecified without hematuria; N40.0 Benign prostatic hyperplasia without lower urinary tract symptoms; I10 Essential (primary) hypertension; I44.7 Left bundle-branch block, unspecified; N28.9 Disorder of kidney and ureter, unspecified; N45.1 Epididymitis; E78.5 Hyperlipidemia, unspecified; Z95.1 Presence of aortocoronary bypass graft; Z98.61 Coronary angioplasty status; I25.5 Ischemic cardiomyopathy; E03.9 Hypothyroidism, unspecified
CPT/HCPCS: 36415; 36600; 71010; 74177; 80053; 81003; 82378; 82550; 82553; 82607; 82746; 82803; 83540; 83550; 83605; 83615; 83735; 84100; 84484; 85007; 85025; 85044; 85060; 85610; 85651; 85730; 87040; 87086; 87181; 93005; 94664; J8499

== ENCOUNTER 2017-05-16 16:49 | Outpatient (CLI) | payer MEDICARE, MEDICAID ==
[~2017-05-16 16:49] MED LIST changes: +AMIODARONE HCL200 MG ORAL; +FINASTERIDE5 MG ORAL; +RANEXA1000 MG ORAL
--- NOTE | 2017-05-17 10:13 | Diagnostic Imaging Report ---
Indication: Dyspnea Comparison: 09/25/2016 A single view chest radiograph was obtained. Findings: No definite infiltrate or pulmonary vascular congestion identified. The heart is enlarged. The aorta is mildly enlarged consistent with atherosclerotic vascular disease. Sternotomy is noted. The bones are osteopenic. Bibasilar atelectasis is noted. Impression: No acute disease
== END 2017-05-16 18:49 | disposition home or self-care (01) ==
LOC: RAD 16:49
DX: Z01.818 Encounter for other preprocedural examination (principal); R06.00 Dyspnea, unspecified; M85.80 Other specified disorders of bone density and structure, unspecified site; J98.11 Atelectasis
CPT/HCPCS: 71020

== ENCOUNTER 2018-12-15 10:44 | Emergency (ER) | payer MEDICARE, MEDICAID ==
[~2018-12-15] VITALS: Ht 162.6 cm; Wt 84.8 kg
--- NOTE | 2018-12-15 11:00 | NUR ---
ED Nurse Note: pt walked in due to right shoulder pain, pt stated he fell 3 days ago and also complaining of cough started 12 days ago. ermd on bedside. pt was trasnfered to monitor bed and report was given to Leandro CANO
--- NOTE | 2018-12-15 11:05 | Emergency Room Report ---
History of Present Illness General Chief Complaint: Upper Extremity Injury Source: Patient Present Illness HPI Patient is a 78-year-old male who presented after increased right shoulder pain after a fall. Patient reports having fallen out of bed onto his right shoulder. He denies any other locations of pain currently. He had been having a frequent cough for approximately 10 days. He had prior history of cardiac disease and takes multiple medications which include Ranexa. Allergies: Coded Allergies: No Known Allergies (Unverified , 08/09/12) Patient History Past Medical History: see triage record Reviewed Nursing Documentation: PMH: Agreed; PSxH: Agreed Nursing Documentation-PMH Past Medical History: No History, Except For Hx Cardiac Problems: Yes Hx Hypertension: Yes Hx Cancer: No Hx Gastrointestinal Problems: No Review of Systems All Other Systems: negative except mentioned in HPI Physical Exam Vital Signs Date Time Temp Pulse Resp B/P (MAP) Pulse Ox O2 Delivery O2 Flow Rate FiO2 12/15/18 10:52 98.1 67 22 95 Room Air Sp02 EP Interpretation: reviewed, normal General Appearance: normal inspection, alert, GCS 15, Chronically Ill Head: atraumatic ENT: normal ENT inspection, hearing grossly normal, normal voice Neck: normal inspection, full range of motion, supple, no bony tend Respiratory: normal inspection, normal breath sounds, no respiratory distress, no retraction Cardiovascular #1: regular rate, rhythm, edema - trace edema Gastrointestinal: normal inspection, normal bowel sounds, non tender, soft, no guarding, no hernia Genitourinary: no CVA tenderness Musculoskeletal: normal inspection, back normal, normal range of motion, tender - tenderness right AC joint Neurologic: normal inspection, alert, oriented x3, responsive, battery assembler dry cell III-XII nml as tested, speech normal Psychiatric: normal inspection, judgement/insight normal, mood/affect normal Skin: normal inspection, normal color, no rash Medical Decision Making Diagnostic Impression: Primary Impression: Calcific tendinitis Additional Impressions: Contusion of shoulder, right Cough ER Course patient presented for right shoulder pain. Differential diagnosis include was not limited to AC separation, fracture, contusion, rotator cuff tear, myocardial ischemia among others. X-ray imaging of the shoulder was ordered due to patient's tenderness which is focal to the right AC joint. Chest x-ray was also ordered due to patient's history of recent onset continued cough.Patient was noted to have significant cardiac history and had previously been noted to have history of angina for which he takes Ranexa.Patient appears to have some cough which is likely bronchitis in nature. Chest x-ray 1 view read by radiology showed no evidence of acute infiltrate or pulmonary edema with normal cardiac size. Patient was given oral steroids and breathing treatment with improvement in his cough. Patient was advised to follow-up with his primary care physician for recheck. Patient was advised to return if he changes mind about having blood testing or had worsening difficulty breathing.EKG interpreted by me showed normal sinus rhythm with a rate of 64 with a left bundle branch block Last Vital Signs Date Time Temp Pulse Resp B/P (MAP) Pulse Ox O2 Delivery O2 Flow Rate FiO2 12/15/18 10:52 98.1 67 22 95 Room Air Status: improved Disposition: HOME, SELF-CARE Condition: Improved Scripts Prednisone* (PREDNISONE*) 20 Mg Tablet 40 MG ORAL DAILY, #8 TAB Prov: Fred Talbot MD 12/15/18 Diclofenac Sodium (VOLTAREN) 100 Gm Gel..gram. 100 GM TP DAILY for pain, #100 GM Prov: Fred Talbot MD 12/15/18 Fred Talbot MD December 15, 2018 11:05
[2018-12-15 11:27] VITALS: BP 128/64
--- NOTE | 2018-12-15 11:28 | NUR ---
ED Nurse Note: Xray at the bedside.
--- NOTE | 2018-12-15 11:44 | Diagnostic Imaging Report ---
Indication: Dyspnea Comparison: 05/16/2017 A single view chest radiograph was obtained. Findings: Mild ill-defined density at the left lung base may be atelectasis or scarring and is unchanged. There is some evidence of volume loss and elevation of the left hemidiaphragm. The heart is enlarged. Sternotomy noted. Bones are osteopenic. IMPRESSION: No significant change. Scarring versus atelectasis left lung base with some signs of volume loss. Cardiomegaly Sternotomy
--- NOTE | 2018-12-15 12:02 | Diagnostic Imaging Report ---
Indication: Right shoulder pain Findings: 3 views of the right shoulder were obtained. No acute fractures, malalignment, erosions or periostitis are identified. Bones are osteopenic. There is calcium in the rotator cuff adjacent to the greater tuberosity likely indicative of calcific tendinopathy. Soft tissues are unremarkable. Impression: Negative for acute injury
[2018-12-15] MEDS ORDERED: VOLTAREN100 G1 TP (12:09)
[2018-12-15] MEDS ORDERED: Albuterol/Ipratropium 3ml neb HHN ONE (12:15)
[2018-12-15] MEDS ORDERED: PREDNISONE20 MG ORAL (12:21)
--- NOTE | 2018-12-15 12:28 | NUR ---
ED Nurse Note: RT at the bedside
[2018-12-15 12:41] VITALS: BP 104/63
--- NOTE | 2018-12-15 12:42 | NUR ---
ER DISCHARGE NOTE: Patient is cleared to be discharged per ERMD, pt is aox4, on room air, with stable vital signs. pt was given dc and prescription instructions, pt was able to verbalize understanding, pt id band removed without complications. pt is able to ambulate with steady gait. pt took all belongings.
--- NOTE | 2018-12-16 17:41 | Cardiology Report ---
APPROVED REPORT EKG Measurement Heart [id number] Normal sinus rhythm Left axis deviation Left bundle branch block Abnormal ECG
== END 2018-12-15 12:42 | disposition home or self-care (01) ==
LOC: EMR 11:10
DX: M75.31 Calcific tendinitis of right shoulder (principal); S40.011A Contusion of right shoulder, initial encounter; R05 Cough; W06.XXXA Fall from bed, initial encounter; Y92.9 Unspecified place or not applicable; I10 Essential (primary) hypertension
CPT/HCPCS: 71045; 73030; 93005; 94640; 94664; 99284; J7512; J7620

== ENCOUNTER 2019-01-16 16:11 | Emergency (ER) | payer MEDICARE, MEDICAID ==
[~2019-01-16] VITALS: Ht 160 cm; Wt 84.4 kg
[~2019-01-16 16:11] MED LIST changes: +PREDNISONE20 MG ORAL; +VOLTAREN100 G1 TP
[2019-01-16 16:50] VITALS: BP 97/52
--- NOTE | 2019-01-16 16:50 | NUR ---
ED Nurse Note: pt walked in to ED due to pain on right shoulder. s/p fall injury 1 month ago. lidocaine patch noted on pain site. AAO x4. respirations even and non-labored noted. will wait for the further order.
--- NOTE | 2019-01-16 17:39 | Emergency Room Report ---
History of Present Illness General Chief Complaint: Pain Source: Patient Present Illness HPI Patient presents with right shoulder pain. He was seen a month ago. Gait is states that x-rays were done. He is not using his sling. The pain is severe today. It is mainly when he moves about. Radiates from the top of the shoulder all the way down into the mid upper arm. Denies any numbness. He denies trauma. Pain is rated 10/10 December 15 xray: No acute fractures, malalignment, erosions or periostitis are identified. Bones are osteopenic. There is calcium in the rotator cuff adjacent to the greater tuberosity likely indicative of calcific tendinopathy. Soft tissues are unremarkable. Impression: Negative for acute injury Allergies: Coded Allergies: No Known Allergies (Unverified , 08/09/12) Patient History Past Medical History: see triage record, old chart reviewed Social History: Denies: smoking Social History Narrative walked to ED Reviewed Nursing Documentation: PMH: Agreed; PSxH: Agreed Nursing Documentation-PMH Past Medical History: No Stated History Hx Cardiac Problems: Yes Hx Hypertension: Yes Hx Cancer: No Hx Gastrointestinal Problems: No Physical Exam Vital Signs Date Time Temp Pulse Resp B/P (MAP) Pulse Ox O2 Delivery O2 Flow Rate FiO2 01/16/19 16:36 97.9 62 18 91/58 (69) 96 Room Air Sp02 EP Interpretation: reviewed, normal General Appearance: well appearing, no apparent distress, GCS 15 Head: normocephalic, atraumatic Eyes: bilateral eye normal inspection, bilateral eye PERRL, bilateral eye EOMI ENT: moist mucus membranes Neck: supple Respiratory: chest non-tender, lungs clear, normal breath sounds Cardiovascular #1: regular rate, rhythm Cardiovascular #2: 2+ radial (R) Gastrointestinal: normal inspection, normal bowel sounds, non tender, no mass, non-distended Musculoskeletal: back normal, gait/station normal, normal range of motion, tender - Right shoulder to palpation. In addition he has pain lifting his arm up. Neurologic: alert, oriented x3, grossly normal Psychiatric: mood/affect normal Skin: normal inspection, warm/dry Medical Decision Making Diagnostic Impression: Primary Impression: Transient hypotension Additional Impressions: Right shoulder pain Qualified Codes: M25.511 - Pain in right shoulder Calcific tendinitis of right shoulder ER Course Patient presents with right shoulder pain without trauma. In addition to that he has low blood pressure with a history of hypertension. Differential includes acute myocardial infarction, pulmonary embolus, tendinitis, bursitis, gout amongst others. The patient will be treated with IV hydration, analgesia. Because of the hypotension the patient will be evaluated EKG, chest x-ray and labs. EKG without injury. Chest x-ray no infiltrates. Right shoulder with calcific tendinitis. Labs unremarkable except for elevated BUN and negative troponin. Pain improved with treatment. No addition blood pressure improved. Splint applied by tech. Position excellent. Neurovasc normal as checked by me. Discussed with patient treatment plan. In addition I warned him that his blood pressure medication may be too strong for him at this time. If dizziness make sure head lower than heart. Also he needs to follow-up with his own doctor. Patient stable for outpatient observation and treatment. Laboratory Tests Test 01/16/19 17:59 White Blood Count 7.6 K/UL (4.8-10.8) Red Blood Count 3.84 M/UL (4.70-6.10) L Hemoglobin 12.0 G/DL (14.2-18.0) L Hematocrit 34.8 % (42.0-52.0) L Mean Corpuscular Volume 91 FL (80-99) Mean Corpuscular Hemoglobin 31.2 PG (27.0-31.0) H Mean Corpuscular Hemoglobin Concent 34.4 G/DL (32.0-36.0) Red Cell Distribution Width 11.9 % (11.6-14.8) Platelet Count 140 K/UL (150-450) L Mean Platelet Volume 6.6 FL (6.5-10.1) Neutrophils (%) (Auto) 62.2 % (45.0-75.0) Lymphocytes (%) (Auto) 22.2 % (20.0-45.0) Monocytes (%) (Auto) 11.4 % (1.0-10.0) H Eosinophils (%) (Auto) 3.3 % (0.0-3.0) H Basophils (%) (Auto) 0.9 % (0.0-2.0) Prothrombin Time 11.3 SEC (9.30-11.50) Prothrombin Time INR 1.1 (0.9-1.1) PTT 22 SEC (23-33) L Sodium Level 141 MMOL/L (136-145) Potassium Level 3.9 MMOL/L (3.5-5.1) Chloride Level 108 MMOL/L (98-107) H Carbon Dioxide Level 27 MMOL/L (21-32) Anion Gap 6 mmol/L (5-15) Blood Urea Nitrogen 36 mg/dL (7-18) H Creatinine 0.8 MG/DL (0.55-1.30) Estimate Glomerular Filtration Rate mL/min (>60) Glucose Level 103 MG/DL (74-106) Uric Acid 4.0 MG/DL (2.6-7.2) Calcium Level 8.5 MG/DL (8.5-10.1) Total Bilirubin 0.5 MG/DL (0.2-1.0) Aspartate Amino Transferase (AST) 13 U/L (15-37) L Alanine Aminotransferase (ALT) 20 U/L (12-78) Alkaline Phosphatase 59 U/L (46-116) Total Protein 6.0 G/DL (6.4-8.2) L Albumin 3.1 G/DL (3.4-5.0) L Globulin 2.9 g/dL Albumin/Globulin Ratio 1.1 (1.0-2.7) EKG Diagnostic Results Rate: normal Rhythm: NSR ST Segments: no acute changes - LBBB Rhythm Strip Diag. Results EP Interpretation: yes Rhythm: NSR, no PVC's, no ectopy Chest X-Ray Diagnostic Results Chest X-Ray Diagnostic Results : Chest X-Ray Ordered: Yes # of Views/Limited/Complete: 1 View Indication: Other EP Interpretation: Yes Interpretation: no consolidation, no effusion, no pneumothorax, other - elevated L anthony Impression: Other Electronically Signed by: Electronically signed by Gary Arreola MD Other X-Ray Diagnostic Results Other X-Ray Diagnostic Results : X-Ray ordered: R shoulder # of Views/Limited Vs Complete: 3 View Indication: Pain Interpretation: no dislocation, no soft tissue swelling, no fractures, other - calcific tendinitis Impression: Other Electronically Signed by: Electronically signed by Gary Arreola MD Last Vital Signs Date Time Temp Pulse Resp B/P (MAP) Pulse Ox O2 Delivery O2 Flow Rate FiO2 01/16/19 20:37 97.8 58 18 100/52 98 Room Air Status: improved Disposition: HOME, SELF-CARE Condition: Improved Scripts Tramadol Hcl* (ULTRAM*) 50 Mg Tablet 50 MG ORAL Q6H PRN for For Pain, #8 TAB 0 Refills Prov: Gary Arreola MD 01/16/19 Naproxen* (NAPROXEN*) 375 Mg Tablet. 375 MG ORAL TID, #20 TAB Prov: Gary Arreola MD 01/16/19 Gary Arreola MD Jan 16, 2019 17:39
[2019-01-16] MEDS ORDERED: HYDROcodone/Acetamin 5/325 tab PO ONE (17:45)
[2019-01-16] MEDS ORDERED: Ketorolac 30mg Inj IV ONE (17:45)
[2019-01-16 18:16] LABS: BASOPHILS % (AUTO) 0.9 % (0.0-2.0); EOSINOPHILS % (AUTO) 3.3 % (0.0-3.0); HEMATOCRIT 34.8 % (42.0-52.0); LYMPHOCYTES % (AUTO) 22.2 % (20.0-45.0); MEAN CORPUSCULAR VOLUME 91 FL (80-99); MONOCYTES % (AUTO) 11.4 % (1.0-10.0); NEUTROPHILS % (AUTO) 62.2 % (45.0-75.0); PLATELET COUNT 140 K/UL (150-450); RED BLOOD COUNT 3.84 M/UL (4.70-6.10); RED CELL DISTRIBUTION WIDTH 11.9 % (11.6-14.8); WHITE BLOOD COUNT 7.6 K/UL (4.8-10.8)
--- NOTE | 2019-01-16 18:23 | Diagnostic Imaging Report ---
EXAM: XR Chest, 1 View CLINICAL HISTORY: PAIN TECHNIQUE: Frontal view of the chest. COMPARISON: 05/16/17 FINDINGS: Lungs: See below. Pleural space: Small left pleural effusion with passive atelectasis or consolidation, correlate clinically to exclude infection. No pneumothorax. Heart: Unchanged cardiomegaly with sternotomy is operative findings. Mediastinum: Unremarkable. Bones/joints: See above. IMPRESSION: 1. Small left pleural effusion with passive atelectasis or consolidation, correlate clinically to exclude infection. 2. Otherwise no acute cardio pulmonary disease. 3. Unchanged cardiomegaly with sternotomy is operative findings.
[2019-01-16 18:26] LABS: INR 1.1 (0.9-1.1)
--- NOTE | 2019-01-16 18:28 | Diagnostic Imaging Report ---
EXAM: XR Right Shoulder Complete, 2 or More Views CLINICAL HISTORY: PAIN TECHNIQUE: Two or more views of the right shoulder. COMPARISON: 12/15/18 FINDINGS: Bones/joints: Rotator cuff calcification representing right rotator cuff calcific tendinopathy. No acute fracture. No dislocation. Soft tissues: See above. Lungs: Old granulomatous disease in the chest with calcified right upper lobe granulomas. IMPRESSION: 1. No acute abnormality. 2. Rotator cuff calcification representing right rotator cuff calcific tendinopathy. 3. Old granulomatous disease in the chest with calcified right upper lobe granulomas.
[2019-01-16 18:32] LABS: ANION GAP 6 mmol/L (5-15); BLOOD UREA NITROGEN 36 mg/dL (7-18); CALCIUM 8.5 MG/DL (8.5-10.1); CARBON DIOXIDE 27 MMOL/L (21-32); CHLORIDE 108 MMOL/L (98-107); CREATININE 0.8 MG/DL (0.55-1.30); POTASSIUM 3.9 MMOL/L (3.5-5.1); SODIUM 141 MMOL/L (136-145)
[2019-01-16 18:36] LABS: ALANINE AMINOTRANSFERASE 20 U/L (12-78); ALBUMIN 3.1 G/DL (3.4-5.0); ALBUMIN/GLOBULIN RATIO 1.1 (1.0-2.7); ALKALINE PHOSPHATASE 59 U/L (46-116); ASPARTATE AMINO TRANSFERASE 13 U/L (15-37); BILIRUBIN,TOTAL 0.5 MG/DL (0.2-1.0)
--- NOTE | 2019-01-16 19:13 | NUR ---
ED Nurse Note: received report from Elizabeth Silva and assumed care, pt vss, resp even and unlabored on RA, no sx distress noted, pt advised to notify staff if needed assist, safety precautions in place, pt repositioned for comfort.
--- NOTE | 2019-01-16 19:13 | NUR ---
HAND-OFF: Report given to RACHAEL Vargas. pending urine collection.
[2019-01-16 19:30] VITALS: BP 100/52
[2019-01-16] MEDS ORDERED: TRAMADOL HCL50 MG ORAL (20:14)
[2019-01-16] MEDS ORDERED: NAPROXEN375 M2 ORAL (20:14)
--- NOTE | 2019-01-16 20:36 | NUR ---
ED Nurse Note: pt cleared to be d/c per ERMD, sling applied by senior pharmacy technician, pt discharge and aftercare instruction provided w/ prescription, pt education done via discussion and handout, pt advised to follow up with pcp or return ed if changes in condition, pt verbalized understanding and agrees with plan, vss, ambulatory w/ steady gait, iv d/c and id band removed, pt left w/ all belongings.
[2019-01-16 20:37] VITALS: BP 100/52
== END 2019-01-16 20:30 | disposition home or self-care (01) ==
LOC: EMR 18:10
DX: M25.511 Pain in right shoulder (principal); M75.31 Calcific tendinitis of right shoulder; I95.9 Hypotension, unspecified; I44.7 Left bundle-branch block, unspecified
CPT/HCPCS: 36415; 71045; 73030; 80053; 84550; 85025; 85610; 85730; 96374; 99284; J1885

== ENCOUNTER 2019-10-08 14:20 | Outpatient (CLI) | payer MEDICARE, MEDICAID ==
[~2019-10-08 14:20] MED LIST changes: +NAPROXEN375 M2 ORAL; +TRAMADOL HCL50 MG ORAL
--- NOTE | 2019-10-08 16:50 | Diagnostic Imaging Report ---
Indication: Cough Technique: 2 views of the chest Comparison: 01/16/2019 Findings: Inspiration is suboptimal. Atelectatic changes are seen at both lung bases. Lungs and pleural spaces are otherwise clear. The heart size is normal. Again demonstrated are median sternotomy sutures. The bones demonstrate mild degenerative spondylosis changes Impression: Hypoventilatory exam with bibasilar atelectasis No acute process otherwise
== END 2019-10-08 16:20 | disposition home or self-care (01) ==
LOC: RAD 14:20
DX: R05 Cough (principal); M47.9 Spondylosis, unspecified; J98.11 Atelectasis
CPT/HCPCS: 71046

== ENCOUNTER → 2019-12-24 | Outpatient (CLI) | payer MEDICARE, MEDICAID ==
--- NOTE | 2019-12-24 15:42 | Diagnostic Imaging Report ---
Indication: Cough Technique: PA and lateral views of the chest Comparison: 10/08/2019 Findings: Heart size and mediastinal contours are stable. Again there is evidence of prior surgery with median sternotomy. Atherosclerotic calcifications noted in a tortuous aorta. Linear atelectasis or scarring is again noted at the bases. There is an unchanged dense nodule in the right apex measuring approximately 4 mm. There is no new focal airspace consolidation. No significant pleural effusion. No evidence of pneumothorax. There are degenerative changes in the spine. No acute osseous abnormality. IMPRESSION: Mild streaky/linear opacities at the bases which may related to subsegmental atelectasis or scarring. Findings are unchanged compared to the prior exam. No new focal consolidation. Additional findings as above, unchanged compared to the prior exam.
== END | disposition home or self-care (01) ==
LOC: RAD 14:59
DX: R05 Cough (principal); J06.9 Acute upper respiratory infection, unspecified; R14.0 Abdominal distension (gaseous); J02.9 Acute pharyngitis, unspecified; R06.09 Other forms of dyspnea
CPT/HCPCS: 71046

== ENCOUNTER 2020-07-01 17:22 | Inpatient (IN) | payer MEDICARE, MEDICAID ==
[~2020-07-01] VITALS: Ht 182.9 cm; Wt 72.6 kg
--- NOTE | 2020-07-01 17:59 | Diagnostic Imaging Report ---
EXAM: CT Head Without Intravenous Contrast CLINICAL HISTORY: AMS TECHNIQUE: Axial computed tomography images of the head/brain without intravenous contrast. CTDI is 53.40 mGy and DLP is 1098.90 mGy-cm. One or more of the following dose reduction techniques were used: automated exposure control, adjustment of the mA and/or kV according to patient size, use of iterative reconstruction technique. COMPARISON: No relevant prior studies available. FINDINGS: Brain: Unremarkable. No hemorrhage. No significant white matter disease. No edema. Ventricles: Unremarkable. No ventriculomegaly. Bones/joints: Unremarkable. No acute fracture. Soft tissues: Unremarkable. Sinuses: Unremarkable as visualized. No acute sinusitis. Mastoid air cells: Unremarkable as visualized. No mastoid effusion. Other findings: Unremarkable for age unenhanced CT head. IMPRESSION: 1. No acute intracranial abnormality. 2. Unremarkable for age unenhanced CT head.
--- NOTE | 2020-07-01 18:15 | Diagnostic Imaging Report ---
EXAM: CT Cervical Spine Without Intravenous Contrast CLINICAL HISTORY: AMS TECHNIQUE: Axial computed tomography images of the cervical spine without intravenous contrast. CTDI is 20.20 mGy and DLP is 550.6 mGy-cm. One or more of the following dose reduction techniques were used: automated exposure control, adjustment of the mA and/or kV according to patient size, use of iterative reconstruction technique. Coronal and sagittal reformatted images were created and reviewed. Axial reformatted images were created and reviewed. COMPARISON: No relevant prior studies available. FINDINGS: Vertebrae: Spine straightening could represent patient positioning or muscle spasm. No acute fracture. Discs/spinal canal/neural foramina: Osteopenia and multilevel age- related degenerative spine findings limit evaluation for small and nondisplaced fractures. No spinal canal stenosis. Soft tissues: Unremarkable. Sinuses: Right ethmoidal air cell scattered opacification could represent sinusitis. Other findings: No acute traumatic osseous injury identified. IMPRESSION: 1. Osteopenia and multilevel age-related degenerative spine findings limit evaluation for small and nondisplaced fractures. 2. No acute traumatic osseous injury identified. 3. If there is continued concern for occult fracture, recommend MRI. 4. Spine straightening could represent patient positioning or muscle spasm. 5. Right ethmoidal air cell scattered opacification could represent sinusitis.
--- NOTE | 2020-07-01 18:18 | Diagnostic Imaging Report ---
EXAM: XR Chest, 1 View CLINICAL HISTORY: AMS TECHNIQUE: Frontal view of the chest. COMPARISON: 12/24/2019 FINDINGS: Lungs: Retrocardiac atelectasis or consolidation. Low lung volumes with bronchovascular crowding. Pleural space: Small left pleural effusion with passive atelectasis. No pneumothorax. Heart: Unchanged cardiomegaly. Mediastinum: Unremarkable. Bones/joints: Sternotomy with mediastinal operative findings. IMPRESSION: 1. Small left pleural effusion with passive atelectasis. 2. Retrocardiac atelectasis or consolidation. 3. Low lung volumes with bronchovascular crowding. 4. If there is continued concern, consider frontal and lateral chest radiographs or CT. 5. Unchanged cardiomegaly.
--- NOTE | 2020-07-01 18:30 | Emergency Room Report ---
History of Present Illness General Chief Complaint: Altered Level of Consciousness Source: Patient, EMS Present Illness HPI 80-year-old [place] male with past medical history of hypothyroidism, paroxysmal A. fib, ischemic cardiomyopathy, CAD status post CABG, dyslipidemia, hypertensi on, BPH, presents with altered mental status by ambulance. According to son, patient is usually ambulatory and able to care for himself at baseline. He lives alone. Today is his birthday so his family got concerned when he was not answering his phone. Last known normal time was last night. Patient was found in his bed confused. Patient denies any complaints at this time. To the son's knowledge, the patient has been compliant with all his medications. The patient's symptoms were gradual onset, severity was moderate, duration since 2 days. Quality: Confused Past medical history: Hypothyroidism, A. fib, ischemic cardiomyopathy, CAD, dyslipidemia, hypertension, BPH Past surgical history: CABG Smoking: Denies Alcohol use: Denies Drug use: Denies Review of systems: Limited secondary to altered mental status 14 point Review of Systems is otherwise negative except per HPI Physical Exam: GENERAL: Awake_alert_ nontoxic, no acute distress Spo2 98% on RA -normal EYES: Extraocular muscles are intact. Conjunctivae clear. Lids without swelling. No nystagmus ENT: External nose and ear normal_in_appearance. Oropharynx clear. Head_atrau matic, Dry_oral_mucosa NECK: No JVD. No meningismus. No thyromegaly. Supple. Trachea midline. Negative kernigs. RESP: Increased respiratory effort. Symmetric rise. No stridor. Clear_to_auscultation_No_rales_No_wheezes CARDIAC: Regular rate and regular rhytm. No_significant pedal edema. ABDOMEN: Soft. Nondistended. Nontender_No_rebound_or_guarding. MSK: Normal muscle tone, without rigidity. Extremities without asymmetric deformity or swelling. SKIN: Warm and dry. No visible cyanosis or pallor NEUROLOGIC: Alert, oriented x0. Unable to follow commands. No truncal ataxia. Psych: Normal mood and affect, normal judgment and insight - COORDINATION OF CARE Case was discussed with: Patient , Patient's Family , Patient's Physician Any labs and imaging that were ordered were interpreted as part of the medical decision making: Medical Decision Making/Plan: Differential diagnosis includes metabolic acidosis, hypothyroidism,/myxedema coma, dehydration, hypovolemia, electrolyte derangement such as hyponatremia / hypoglycemia, neuromuscular junction disorder such as myasthenia gravis, GI bleed, anemia, UTI, among others. Patient presents with acute encephalopathy. No focal deficits on exam. No nuchal rigidity, fever, or petechial rash to suggest meningitis or encephalitis. T3 is mildly low therefore thyroid hormone was given. Ca was also low, so it was repleted. Patient showed mild improvement with these measures. ABG shows PaCO2 mildly elevated so due to increased work of breathing, patient was placed on BiPAP to help with ventilation. Tox screen was negative. CT head and C-spine are negative for acute intracranial hemorrhage or fracture. The patient feels generally weak but has no focal neurologic deficits, abnormal muscle tone, hypo/hyperreflexia, or fatigability. No evidence of stroke, spinal cord emergency, neuromuscular junction disorder, or multiple sclerosis at this time. I spoke with Dr. Echevarria, and reviewed the patients presentation, workup, results, and treatment. They will admit the patient for further care and evaluation, and assume care of the patient at this time. Allergies: Coded Allergies: No Known Allergies (Unverified , 08/09/12) COVID-19 Screening Contact w/high risk pt: No Experienced COVID-19 symptoms?: No COVID-19 Testing performed GANG SAW OPERATOR: No Nursing Documentation-PMH Hx Cardiac Problems: Yes Hx Hypertension: Yes Hx Cancer: No Hx Gastrointestinal Problems: No Physical Exam Vital Signs Date Time Temp Pulse Resp B/P (MAP) Pulse Ox O2 Delivery O2 Flow Rate FiO2 07/01/20 17:21 97.9 68 20 116/72 (87) 98 Room Air Sp02 EP Interpretation: reviewed, normal Procedures Critical Care Time Critical Care Time Critical Care Statement Organ systems at risk include: cardiac / circulatory Critical care performed for 45 minutes. Time is exclusive of separately billable procedures. Time includes: direct patient care, continuous monitoring and multiple patient reassessment, coordination of patient care, review of patient's medical records, medical consultation, family consultation regarding treatment decisions and documentation of patient care. Medical Decision Making Diagnostic Impression: Primary Impression: Acute encephalopathy Additional Impressions: Hypocalcemia Hypothyroidism Hypercapnia Pleural effusion EKG Diagnostic Results Troponin ordered: Yes When was troponin ordered?: Jul 01, 2020 FLAVIO Scribe Text 12-lead EKG (interpreted by me) Time: 1730 Indication: Rhythm analysis Tracing visualized and Interpreted by me. Rhythm: Normal sinus rhythm Rate: 66 bpm QTc: 540 Morphology: No_significant_ST_elevations_or_depressions, No STEMI Impression: Sinus rhythm. PVCs. 12-lead EKG (interpreted by me) Time: 1731 Indication: Rhythm analysis Tracing visualized and Interpreted by me. Rhythm: Normal sinus rhythm Rate: 62 bpm QTc: 537 Morphology: No_significant_ST_elevations_or_depressions, No STEMI Impression: Normal_sinus_rhythm_without_significant_abnormality. PVCs. Rhythm Strip Diag. Results Rhythm Strip Time: 19:19 EP Interpretation: yes Rate: 68 Rhythm: NSR, no PVC's, no ectopy Chest X-Ray Diagnostic Results Chest X-Ray Diagnostic Results : PA Scribe Text Chest X-Ray: Views: 1 view(s) Indication: AMS Findings: Normal heart size. Mediastinum normal. Impression: L pleural effusion. Retrocardiac atelectasis versus consolidation. Left lower lobe pleural effusion versus pneumonia The X-ray(s) were independently viewed and interpreted contemporaneously Electronically signed by Laure ramirez DO CT/MRI/US Diagnostic Results CT/MRI/US Diagnostic Results : Impression CT Head Without Intravenous Contrast CLINICAL HISTORY: AMS FINDINGS: Brain: Unremarkable. No hemorrhage. No significant white matter disease. No edema. Ventricles: Unremarkable. No ventriculomegaly. Bones/joints: Unremarkable. No acute fracture. Soft tissues: Unremarkable. Sinuses: Unremarkable as visualized. No acute sinusitis. Mastoid air cells: Unremarkable as visualized. No mastoid effusion. Other findings: Unremarkable for age unenhanced CT head. IMPRESSION: 1. No acute intracranial abnormality. 2. Unremarkable for age unenhanced CT head. CT Cervical Spine Without Intravenous Contrast COMPARISON: No relevant prior studies available. FINDINGS: Vertebrae: Spine straightening could represent patient positioning or muscle spasm. No acute fracture. Discs/spinal canal/neural foramina: Osteopenia and multilevel age- related degenerative spine findings limit evaluation for small and nondisplaced fractures. No spinal canal stenosis. Soft tissues: Unremarkable. Sinuses: Right ethmoidal air cell scattered opacification could represent sinusitis. Other findings: No acute traumatic osseous injury identified. IMPRESSION: 1. Osteopenia and multilevel age-related degenerative spine findings limit evaluation for small and nondisplaced fractures. 2. No acute traumatic osseous injury identified. 3. If there is continued concern for occult fracture, recommend MRI. 4. Spine straightening could represent patient positioning or muscle spasm. 5. Right ethmoidal air cell scattered opacification could represent sinusitis. Reevaluation Time: 19:20 Last Vital Signs Date Time Temp Pulse Resp B/P (MAP) Pulse Ox O2 Delivery O2 Flow Rate FiO2 07/01/20 17:21 97.9 68 20 116/72 (87) 98 Room Air Status: improved Disposition: ADMITTED INPATIENT Admit Decision Time: 19:20 Condition: Stable Referrals: NOT CHOSEN IPA/,REFERRING (PCP) Laure Auguste D.O. Jul 01, 2020 18:30
[2020-07-01 18:32] VITALS: BP 148/68
[2020-07-01 18:39] LABS: EOSINOPHILS % (AUTO) 4.5 % (0.0-3.0); HEMATOCRIT 41.1 % (42.0-52.0); HEMOGLOBIN 13.7 G/DL (14.2-18.0); LYMPHOCYTES % (AUTO) 32.7 % (20.0-45.0); MEAN CORPUSCULAR VOLUME 96 FL (80-99); MONOCYTES % (AUTO) 10.2 % (1.0-10.0); NEUTROPHILS % (AUTO) 51.7 % (45.0-75.0); PLATELET COUNT 146 K/UL (150-450); RED BLOOD COUNT 4.29 M/UL (4.70-6.10); RED CELL DISTRIBUTION WIDTH 12.9 % (11.6-14.8); WHITE BLOOD COUNT 6.2 K/UL (4.8-10.8)
[2020-07-01 18:42] LABS: ANION GAP 6 mmol/L (5-15); BLOOD UREA NITROGEN 20 mg/dL (7-18); CALCIUM 6.4 MG/DL (8.5-10.1); CARBON DIOXIDE 25 MMOL/L (21-32); CHLORIDE 112 MMOL/L (98-107); CREATININE 0.6 MG/DL (0.55-1.30); POTASSIUM 3.5 MMOL/L (3.5-5.1); SODIUM 143 MMOL/L (136-145)
[2020-07-01 18:45] LABS: AMMONIA 15 umol/L (11-32)
[2020-07-01 18:58] LABS: ALANINE AMINOTRANSFERASE 12 U/L (12-78); ALBUMIN 2.4 G/DL (3.4-5.0); ALKALINE PHOSPHATASE 40 U/L (46-116); ASPARTATE AMINO TRANSFERASE 19 U/L (15-37); BILIRUBIN,TOTAL 0.6 MG/DL (0.2-1.0); CREATINE KINASE 85 U/L (26-308)
[2020-07-01] MEDS ORDERED: Hydrocortisone 100mg Inj IV ONE (19:15)
[2020-07-01] MEDS ORDERED: THYROID 15 MG ORAL SCH (19:15)
[2020-07-01] MEDS ORDERED: Vancomycin 1 GM in NS 275 ML IVPB ONE (19:30)
[2020-07-01] MEDS ORDERED: cefTRIAXone 1 GM in NS 55 ML IVPB ONE (19:30)
[2020-07-01] MEDS: Calcium Gluconate 1gm/50ml 50 ML IVPB SCH ×2 (20:20→20:59)
[2020-07-01 20:42] VITALS: BP 137/65
[2020-07-01 21:35] VITALS: BP 147/92
[2020-07-01] MEDS ORDERED: Milk of Magnesia 30ml Ud ORAL PRN (22:00)
[2020-07-01] MEDS: Carvedilol 6.25mg Tab ORAL SCH (22:51)
[2020-07-01] MEDS ORDERED: D5 1/2NS 1,000 ML IV SCH (23:00)
[2020-07-02] VITALS: BP 126/75
[2020-07-02 03:54] VITALS: BP 114/68
[2020-07-02 08:00] VITALS: BP 131/78
[2020-07-02] MEDS: Amiodarone 200mg tab ORAL SCH (08:31)
[2020-07-02] MEDS ORDERED: Aspirin EC 325mg tab ORAL SCH (09:00)
--- NOTE | 2020-07-02 09:13 | History & Physical ---
History and Physical History & Physicial HP dictated #[id number] Michael Chiu MD Jul 02, 2020 09:13
[2020-07-02] MEDS: Carvedilol 6.25mg Tab ORAL SCH ×2 (09:18→21:27)
[2020-07-02] MEDS: Aspirin EC 81mg tab ORAL SCH (09:34)
--- NOTE | 2020-07-02 09:44 | History and Physical Report ---
DATE OF ADMISSION: 07/01/2020 CHIEF COMPLAINT: The patient was found to have change in mental status. HISTORY OF PRESENT ILLNESS: This is an 80-year-old [place] male who apparently lives alone. Usually he is ambulatory and taking care of himself, yesterday it was his birthday. However, the family got concerned because he was not answering the phone. The patient was found to be in bed, confused. He was brought into the emergency room. A CT scan of the brain did not show any evidence of stroke. This morning, he appears to be alert and oriented. He does not remember anything after going to bed. PAST MEDICAL HISTORY: Includes history of hypothyroidism, history of atrial fibrillation, cardiomyopathy, coronary artery disease, dyslipidemia, hypertension, BPH. The patient is status post CABG. MEDICATIONS: Reviewed in the EMR. SOCIAL HISTORY: No history of smoking or alcohol abuse. ALLERGIES: No known drug allergies. REVIEW OF SYSTEMS: Noncontributory. PHYSICAL EXAMINATION: GENERAL: The patient is an elderly male, in no acute distress. He is alert and oriented x3. VITAL SIGNS: Blood pressure is 131/78, pulse 70, respirations 20, and temperature 98.1. HEENT: [place] conjunctivae. Anicteric sclerae. NECK: Supple. LUNGS: Clear to auscultation. HEART: S1 and S2 without murmurs or rubs. ABDOMEN: Soft, nontender. EXTREMITIES: No cyanosis or edema. LABORATORY FINDINGS: CBC shows wbc's of 6200, hematocrit 41.1, hemoglobin is 13.7, platelets 146,000. Chemistry panel shows a sodium 143, potassium 3.5, chloride 112, BUN is 20, creatinine 0.6. TSH is 0.96 and free T3 is 1.7. Tox screen was negative. ASSESSMENT: This is an 80-year-old [place] male admitted with acute encephalopathy which appears to be resolved as of this morning. The patient has multiple medical problems including cardiomyopathy, coronary artery disease, hypothyroidism. The etiology of acute encephalopathy is not clear; however, urine tract infection or sepsis needs to be ruled out. PLAN: The patient will have a UA and culture and sensitivity. Neurology consultation will obtained. The patient will be observed in telemetry unit. Case was discussed with the RN and adjustment will be made in the patient's medications based on hospital course and findings. Michael Chiu M.D. DR: Uzma JOB#: [id number] CC:
[2020-07-02 12:00] VITALS: BP 130/77
--- NOTE | 2020-07-02 14:14 | Cardiology Progress Note ---
Assessment/Plan Assessment/Plan full note dictated [id number] Objective Last 24 Hour Vital Signs Date Time Temp Pulse Resp B/P (MAP) Pulse Ox O2 Delivery O2 Flow Rate FiO2 07/02/20 09:18 70 146/91 07/02/20 08:00 Nasal Cannula 2.0 07/02/20 08:00 2.0 07/02/20 08:00 98.1 70 20 131/78 (95) 98 07/02/20 07:55 98 Nasal Cannula 2.0 28 07/02/20 07:53 68 07/02/20 06:57 Nasal Cannula 2.0 07/02/20 05:34 87 07/02/20 04:00 Nasal Cannula 2.0 07/02/20 04:00 82 07/02/20 04:00 2.0 07/02/20 03:54 98.0 77 20 114/68 (83) 98 07/02/20 00:00 2.0 07/02/20 00:00 97.6 76 20 126/75 (92) 98 07/02/20 00:00 Nasal Cannula 2.0 07/01/20 23:51 80 07/01/20 22:51 83 147/92 07/01/20 22:40 97 Nasal Cannula 2.0 28 07/01/20 21:35 Room Air 07/01/20 21:35 2.0 07/01/20 21:35 97.0 83 20 147/92 (110) 97 07/01/20 21:35 Nasal Cannula 2.0 07/01/20 21:30 98.0 76 25 137/65 100 Bi-pap 40 07/01/20 20:42 98.0 76 25 137/65 100 Bi-pap 40 07/01/20 20:04 73 21 98 40 07/01/20 18:33 60 20 Room Air 07/01/20 18:32 97.9 60 20 148/68 98 Room Air 07/01/20 17:21 97.9 68 20 116/72 (87) 98 Room Air Intake and Output 07/01/20 07/02/20 19:00 07:00 Intake Total 410 ml Output Total 500 ml Balance -90 ml Intake IV Total 410 ml Output Urine Total 500 ml # Voids 1 Laboratory Tests Test 07/01/20 17:50 07/01/20 17:56 07/01/20 19:10 White Blood Count 6.2 K/UL (4.8-10.8) Red Blood Count 4.29 M/UL (4.70-6.10) L Hemoglobin 13.7 G/DL (14.2-18.0) L Hematocrit 41.1 % (42.0-52.0) L Mean Corpuscular Volume 96 FL (80-99) Mean Corpuscular Hemoglobin 31.9 PG (27.0-31.0) H Mean Corpuscular Hemoglobin Concent 33.3 G/DL (32.0-36.0) Red Cell Distribution Width 12.9 % (11.6-14.8) Platelet Count 146 K/UL (150-450) L Mean Platelet Volume 8.2 FL (6.5-10.1) Neutrophils (%) (Auto) 51.7 % (45.0-75.0) Lymphocytes (%) (Auto) 32.7 % (20.0-45.0) Monocytes (%) (Auto) 10.2 % (1.0-10.0) H Eosinophils (%) (Auto) 4.5 % (0.0-3.0) H Basophils (%) (Auto) 1.0 % (0.0-2.0) Urine Color Pending Urine Appearance Pending Urine pH Pending Urine Specific [place] Pending Urine Protein Pending Urine Glucose (UA) Pending Urine Ketones Pending Urine Blood Pending Urine Nitrite Pending Urine Bilirubin Pending Urine Urobilinogen Pending Urine Leukocyte Esterase Pending Sodium Level 143 MMOL/L (136-145) Potassium Level 3.5 MMOL/L (3.5-5.1) Chloride Level 112 MMOL/L (98-107) H Carbon Dioxide Level 25 MMOL/L (21-32) Anion Gap 6 mmol/L (5-15) Blood Urea Nitrogen 20 mg/dL (7-18) H Creatinine 0.6 MG/DL (0.55-1.30) Estimat Glomerular Filtration Rate > 60 mL/min (>60) Glucose Level 80 MG/DL (74-106) Lactic Acid Level 0.80 mmol/L (0.4-2.0) Calcium Level 6.4 MG/DL (8.5-10.1) L Total Bilirubin 0.6 MG/DL (0.2-1.0) Aspartate Amino Transf (AST/SGOT) 19 U/L (15-37) Alanine Aminotransferase (ALT/SGPT) 12 U/L (12-78) Alkaline Phosphatase 40 U/L (46-116) L Ammonia 15 umol/L (11-32) Total Creatine Kinase 85 U/L (26-308) Troponin I 0.034 ng/mL (0.000-0.056) Total Protein 4.7 G/DL (6.4-8.2) L Albumin 2.4 G/DL (3.4-5.0) L Globulin 2.3 g/dL Albumin/Globulin Ratio 1.0 (1.0-2.7) Thyroid Stimulating Hormone (TSH) 0.962 uiU/mL (0.358-3.740) Free Thyroxine 1.14 NG/DL (0.76-1.46) Free Triiodothyronine 1.7 pg/mL (2.3-4.2) L Salicylates Level < 0.2 ug/mL (2.8-20) L Urine Opiates Screen Negative (NEGATIVE) Acetaminophen Level 3 MCG/ML (10-30) L Urine Barbiturates Screen Negative (NEGATIVE) Phencyclidine (PCP) Screen Negative (NEGATIVE) Urine Amphetamines Screen Negative (NEGATIVE) Urine Benzodiazepines Screen Negative (NEGATIVE) Urine Cocaine Screen Negative (NEGATIVE) Urine Marijuana (THC) Screen Negative (NEGATIVE) Serum Alcohol < 3 mg/dL POC Whole Blood Glucose Pending Arterial Blood pH 7.347 (7.350-7.450) Arterial Blood Partial Pressure CO2 45.1 mmHg (35.0-45.0) H Arterial Blood Partial Pressure O2 74.3 mmHg (75.0-100.0) L Arterial Blood HCO3 24.2 mmol/L (22.0-26.0) Arterial Blood Oxygen Saturation 94.0 % (95-100) L Arterial Blood Base Excess -1.7 (-2-2) Waqar Test Positive Milton Bloom MD Jul 02, 2020 14:14
[2020-07-02 16:00] VITALS: BP 168/99
--- NOTE | 2020-07-02 16:45 | Consultation ---
DATE OF CONSULTATION: 07/02/2020 CARDIOLOGY CONSULTATION. CONSULTING PHYSICIAN: Milton Bloom M.D. REFERRING PHYSICIAN: Michael Chiu M.D. REASON FOR REFERRAL: Abnormal rhythm. HISTORY OF PRESENT ILLNESS: This is an elderly gentleman who presented to the hospital, brought in by family members because they were unable to get hold of him. They found him to be in his bed, confused, not answering the phone call, and the patient was brought to the emergency room. He did know what was happening to him until really this morning when he apparently saw Dr. Michael Chiu. He does not recall the events. Does not have any chest pain. Does not have any shortness of breath. There is no PND, uses one pillow at night when he sleeps. There is no dizziness or lightheadedness on a regular basis. He occasionally does have a heart pounding or palpitation. He is active around the neighborhood here. He walks some . He does not have to stop because of chest pain but he does get tired some of the time. PAST MEDICAL HISTORY: History of scrotal cellulitis, epididymitis, orchitis, prostatic hypertrophy, urinary tract infection, hypertension, coronary artery disease status post coronary artery bypass grafting, ischemic cardiomyopathy, hypothyroidism. He has a history of percutaneous coronary intervention, paroxysmal episodes of atrial fibrillation, hyperlipidemia, gastroesophageal reflux disease, glaucoma, cataracts, hernia repair, colonoscopy. ALLERGIES: He is not allergic to any medications. SOCIAL HISTORY: He does not smoke at the present time although he did so in . Socially drinks alcoholic beverages. No drug use. REVIEW OF SYSTEMS: GASTROINTESTINAL: Negative. GENITOURINARY: Negative. PULMONARY: Negative. CONSTITUTIONAL: Negative. NEUROLOGICAL: Negative. PHYSICAL EXAMINATION: GENERAL: Shows to be elderly gentleman, overweight, in no apparent respiratory distress. NECK: Supple. No jugular venous distention. LUNGS: Clear to auscultation and percussion. CARDIAC: Regular rate and rhythm. There is a holosystolic regurgitant murmur that is noted and increased P2 is noted also. ABDOMEN: Soft and nontender. Positive bowel sounds. EXTREMITIES: No clubbing, cyanosis, or edema. NEUROLOGICAL: He is awake, alert, responsive, in no apparent distress. LABORATORY AND DIAGNOSTIC DATA: Electrocardiogram shows what appears to be sinus with interventricular conduction delay. Telemetry data indicates premature ventricular complexes or aberrant conduction along with sinus rhythm. CT scan of the cervical spine that shows osteopenia, multilevel degenerative changes, no acute osseous injuries. Head CT scan performed showed no acute intracranial abnormalities and unremarkable for age otherwise. Chest x-ray performed shows small left-sided pleural effusion with passive atelectasis, retrocardiac atelectasis, and consolidation in the lung volumes, bronchoalveolar clouding. Blood tests show white count 6.2, hemoglobin 13.7, and platelet count of 146. A pH of 7.34, pCO2 45, pO2 of 74, and bicarb of 24. Sodium 142, potassium 3.5, chloride 112, bicarb 25, BUN of 20, creatinine 0.6, and glucose of 80. Lactic acid 0.8. Calcium is 6.4. Liver function tests are normal. Troponin 0.034. Albumin of 2.4. TSH is 0.962. Free T3 of 1.7 and free T4 of 0.14. Drug screen was negative. Urinalysis is pending at this time. ASSESSMENT AND PLAN: 1. Metabolic encephalopathy. 2. Coronary artery disease status post percutaneous coronary intervention and bypass surgery. 3. History of atrial fibrillation. 4. History of ischemic cardiomyopathy. 5. History of hypothyroidism. 6. Reported history of atrial fibrillation previously. 7. History of hyperlipidemia. 8. History of gastroesophageal reflux disease. Dr. Chiu, this patient was seen in cardiac consultation. The patient has no symptoms of coronary syndrome. The alteration of mentation that was happening yesterday needs to be further evaluated. I do agree with neurological evaluation. An echocardiogram will be ordered in light of his murmur and LV systolic dysfunction and further recommendations depending on the results of the above. From a cardiac point of view, the patient appears to be stable. His blood pressure most recently is adequately controlled 131/78 with heart rate in the 70s. I will follow the patient along with you. Milton Bloom M.D. DR: Linnette JOB#: [id number] CC:
[2020-07-02] MEDS ORDERED: Zolpidem 5mg tab ORAL PRN (19:30)
[2020-07-02 20:00] VITALS: BP 153/76
[2020-07-02] MEDS: Ranolazine 500mg tab ORAL SCH (21:26)
[2020-07-03] VITALS: BP_SYST 117; BP_SYST 135; BP_DIAS 63; BP_DIAS 66
[2020-07-03 04:00] VITALS: BP 128/89
[2020-07-03 07:11] LABS: APPEARANCE,URINE CLEAR; BILIRUBIN, URINE NEGATIVE (NEGATIVE); GLUCOSE, URINE (UA) NEGATIVE (NEGATIVE); KETONES,URINE 2+ (NEGATIVE); LEUKOCYTE ESTERASE ,URINE 2+ (NEGATIVE); NITRITE,URINE NEGATIVE (NEGATIVE); PH,URINE 5 (4.5-8.0); PROTEIN,URINE NEGATIVE (NEGATIVE); UROBILINOGEN,URINE NORMAL MG/DL (0.0-1.0)
[2020-07-03 07:28] LABS: COLOR,URINE YELLOW
[2020-07-03 08:00] VITALS: BP 152/75
[2020-07-03 08:28] LABS: BASOPHILS % (AUTO) 0.9 % (0.0-2.0); EOSINOPHILS % (AUTO) 3.6 % (0.0-3.0); HEMATOCRIT 45.3 % (42.0-52.0); HEMOGLOBIN 15.3 G/DL (14.2-18.0); LYMPHOCYTES % (AUTO) 26.9 % (20.0-45.0); MEAN CORPUSCULAR VOLUME 93 FL (80-99); MONOCYTES % (AUTO) 7.7 % (1.0-10.0); NEUTROPHILS % (AUTO) 60.9 % (45.0-75.0); PLATELET COUNT 184 K/UL (150-450); RED BLOOD COUNT 4.88 M/UL (4.70-6.10); RED CELL DISTRIBUTION WIDTH 13.2 % (11.6-14.8); WHITE BLOOD COUNT 8.1 K/UL (4.8-10.8)
[2020-07-03 08:57] LABS: ALANINE AMINOTRANSFERASE 22 U/L (12-78); ALBUMIN 3.5 G/DL (3.4-5.0); ALKALINE PHOSPHATASE 58 U/L (46-116); ANION GAP 9 mmol/L (5-15); ASPARTATE AMINO TRANSFERASE 24 U/L (15-37); BILIRUBIN,TOTAL 1.2 MG/DL (0.2-1.0); BLOOD UREA NITROGEN 15 mg/dL (7-18); CALCIUM 8.7 MG/DL (8.5-10.1); CARBON DIOXIDE 27 MMOL/L (21-32); CHLORIDE 103 MMOL/L (98-107); POTASSIUM 3.4 MMOL/L (3.5-5.1); SODIUM 139 MMOL/L (136-145)
[2020-07-03 09:05] LABS: BILIRUBIN,DIRECT 0.3 MG/DL (0.0-0.3)
[2020-07-03] MEDS: Ranolazine 500mg tab ORAL SCH ×2 (09:38→21:15)
[2020-07-03] MEDS: Carvedilol 6.25mg Tab ORAL SCH ×2 (09:39→21:15)
[2020-07-03] MEDS: Amiodarone 200mg tab ORAL SCH (09:39)
[2020-07-03] MEDS: Aspirin EC 81mg tab ORAL SCH (09:39)
--- NOTE | 2020-07-03 10:42 | General Progress Note ---
Subjective Allergies: Coded Allergies: No Known Allergies (Unverified , 08/09/12) Subjective feels ok Objective Last 24 Hour Vital Signs Date Time Temp Pulse Resp B/P (MAP) Pulse Ox O2 Delivery O2 Flow Rate FiO2 07/03/20 09:39 82 152/75 07/03/20 04:00 70 07/03/20 04:00 97.6 71 20 128/89 (102) 96 07/03/20 00:00 75 07/03/20 00:00 97.4 69 20 117/63 (81) 96 07/02/20 21:27 76 163/96 07/02/20 20:18 96 Nasal Cannula 2.0 28 07/02/20 20:00 97.2 76 18 153/76 (101) 98 07/02/20 20:00 73 07/02/20 16:00 98.4 79 20 168/99 (122) 96 07/02/20 16:00 70 07/02/20 12:00 98.1 70 20 130/77 (94) 97 07/02/20 12:00 77 Intake and Output 07/02/20 07/03/20 19:00 07:00 Intake Total 364 ml Output Total 300 ml Balance 64 ml Intake IV Total 364 ml Output Urine Total 300 ml # Voids 3 Laboratory Tests 07/02/20 17:00: D-Dimer 0.54H, Vitamin B12 Level 621, Methylmalonic Acid [Pending] 07/03/20 06:00: Urine Color Yellow, Urine Appearance Clear, Urine pH 5, Urine Specific [place] 1.015, Urine Protein Negative, Urine Glucose (UA) Negative, Urine Ketones 2+H, Urine Blood 3+H, Urine Nitrite Negative, Urine Bilirubin Negative, Urine Urobilinogen Normal, Urine Leukocyte Esterase 2+H, Urine RBC 10-15H, Urine WBC 15-20H, Urine Squamous Epithelial Cells None, Urine Bacteria Occasional 07/03/20 07:45: White Blood Count 8.1, Red Blood Count 4.88, Hemoglobin 15.3, Hematocrit 45.3, M kofi Corpuscular Volume 93, Mean Corpuscular Hemoglobin 31.5H, Mean Corpuscular Hemoglobin Concent 33.9, Red Cell Distribution Width 13.2, Platelet Count 184, Mean Platelet Volume 7.9, Neutrophils (%) (Auto) 60.9, Lymphocytes (%) (Auto) 26.9, Monocytes (%) (Auto) 7.7, Eosinophils (%) (Auto) 3.6H, Basophils (%) (Auto) 0.9, Sodium Level 139, Potassium Level 3.4L, Chloride Level 103, Carbon Dioxide Level 27, Anion Gap 9, Blood Urea Nitrogen 15, Creatinine 1.0, Estimat Glomerular Filtration Rate > 60, Glucose Level 100, Calcium Level 8.7, Total Bilirubin 1.2H, Direct Bilirubin 0.3, Aspartate Amino Transf (AST/SGOT) 24, Alanine Aminotransferase (ALT/SGPT) 22, Alkaline Phosphatase 58, Total Protein 7.1, Albumin 3.5, Globulin 3.6, Albumin/Globulin Ratio 1.0, Vitamin D 25-Hydroxy [Pending], 25-Hydroxy Vitamin D2 [Pending], 25-Hydroxy Vitamin D3 [Pending] Height (Feet): 6 Height (Inches): 0.00 Weight (Pounds): 160 Cardiovascular: normal rate Respiratory/Chest: lungs clear Edema: no edema noted Generalized Assessment/Plan Problem List: (1) Acute encephalopathy ICD Codes: G93.40 - Encephalopathy, unspecified SNOMED: 81277286, 486969903 (2) Afib ICD Codes: I48.91 - Unspecified atrial fibrillation SNOMED: 83709626 (3) Cardiomyopathy ICD Codes: I42.9 - Cardiomyopathy, unspecified SNOMED: 21284541 (4) Hypothyroidism ICD Codes: E03.9 - Hypothyroidism, unspecified SNOMED: 92407729 (5) Hypertension ICD Codes: I10 - Essential (primary) hypertension SNOMED: 27911731 Assessment/Plan: Discussed with Dr Castellano MRI of brain cardiology F/U check Echo Michael Chiu MD Jul 03, 2020 10:42
[2020-07-03] MEDS ORDERED: Gadavist 7.5mMol/7.5ml vial IV PRN (10:45)
[2020-07-03 12:00] VITALS: BP 149/89
--- NOTE | 2020-07-03 15:34 | Diagnostic Imaging Report ---
Indications: Altered level of consciousness Technique: Spiral acquisitions obtained through the brain. Angled axial and coronal 5 x 5 mm slices were reconstructed. Total dose length product 992 mGycm. CTDI vol(s) 53 mGy. Dose reduction achieved using automated exposure control Comparison: 07/01/2020 Findings: No acute intracranial hemorrhage or edema, mass effect, nor midline shift. Normal caceres-white differentiation. Normal for age ventricles and extra axial CSF spaces. There is evidence of prior ocular surgery on the left. There is right ethmoid sinus disease. The mastoids are clear. There is no significant interim change Impression: No acute abnormality The CT scanner at [facility] is accredited by the [employer] and the scans are performed using protocols designed to limit radiation exposure to as low as reasonably achievable to attain images of sufficient resolution adequate for diagnostic evaluation.
[2020-07-03 16:00] VITALS: BP 115/74
--- NOTE | 2020-07-03 19:05 | Cardiology Progress Note ---
Assessment/Plan Assessment/Plan 1. Metabolic encephalopathy. 2. Coronary artery disease status post percutaneous coronary intervention and bypass surgery. 3. History of atrial fibrillation. 4. History of ischemic cardiomyopathy. 5. History of hypothyroidism. 6. Reported history of atrial fibrillation previously. 7. History of hyperlipidemia. 8. History of gastroesophageal reflux disease. pt on entresto not available be at his hospital ok to dc from cardiac view point fu with dr lemos as out pt tele sinsu pac i have not made any changes to his med he can contieu what he was taking at home Subjective Cardiovascular: Denies: chest pain, lightheadedness, palpitations Respiratory: Denies: shortness of breath Gastrointestinal/Abdominal: Denies: abdominal pain Genitourinary: Denies: burning Objective Last 24 Hour Vital Signs Date Time Temp Pulse Resp B/P (MAP) Pulse Ox O2 Delivery O2 Flow Rate FiO2 07/03/20 16:00 71 07/03/20 16:00 97.9 73 18 115/74 (88) 98 07/03/20 12:00 71 07/03/20 12:00 98.0 81 20 149/89 (109) 98 07/03/20 09:39 82 152/75 07/03/20 09:00 2.0 07/03/20 09:00 Nasal Cannula 2.0 07/03/20 08:00 81 07/03/20 08:00 97.8 82 22 152/75 (100) 97 07/03/20 04:00 70 07/03/20 04:00 97.6 71 20 128/89 (102) 96 07/03/20 00:00 75 07/03/20 00:00 97.4 69 20 117/63 (81) 96 07/02/20 21:27 76 163/96 07/02/20 20:18 96 Nasal Cannula 2.0 28 07/02/20 20:00 97.2 76 18 153/76 (101) 98 07/02/20 20:00 73 General Appearance: no apparent distress, alert Neck: supple Cardiovascular: normal rate Respiratory/Chest: lungs clear Abdomen: normal bowel sounds, non tender, soft Extremities: no swelling Intake and Output 07/02/20 07/03/20 19:00 07:00 Intake Total 364 ml Output Total 300 ml Balance 64 ml Intake IV Total 364 ml Output Urine Total 300 ml # Voids 3 Laboratory Tests Test 07/03/20 06:00 07/03/20 07:45 Urine Color Yellow Urine Appearance Clear Urine pH 5 (4.5-8.0) Urine Specific [place] 1.015 (1.005-1.035) Urine Protein Negative (NEGATIVE) Urine Glucose (UA) Negative (NEGATIVE) Urine Ketones 2+ (NEGATIVE) H Urine Blood 3+ (NEGATIVE) H Urine Nitrite Negative (NEGATIVE) Urine Bilirubin Negative (NEGATIVE) Urine Urobilinogen Normal MG/DL (0.0-1.0) Urine Leukocyte Esterase 2+ (NEGATIVE) H Urine RBC 10-15 /HPF (0 - 0) H Urine WBC 15-20 /HPF (0 - 0) H Urine Squamous Epithelial Cells None /LPF (NONE/OCC) Urine Bacteria Occasional /HPF (NONE) White Blood Count 8.1 K/UL (4.8-10.8) Red Blood Count 4.88 M/UL (4.70-6.10) Hemoglobin 15.3 G/DL (14.2-18.0) Hematocrit 45.3 % (42.0-52.0) Mean Corpuscular Volume 93 FL (80-99) Mean Corpuscular Hemoglobin 31.5 PG (27.0-31.0) H Mean Corpuscular Hemoglobin Concent 33.9 G/DL (32.0-36.0) Red Cell Distribution Width 13.2 % (11.6-14.8) Platelet Count 184 K/UL (150-450) Mean Platelet Volume 7.9 FL (6.5-10.1) Neutrophils (%) (Auto) 60.9 % (45.0-75.0) Lymphocytes (%) (Auto) 26.9 % (20.0-45.0) Monocytes (%) (Auto) 7.7 % (1.0-10.0) Eosinophils (%) (Auto) 3.6 % (0.0-3.0) H Basophils (%) (Auto) 0.9 % (0.0-2.0) Sodium Level 139 MMOL/L (136-145) Potassium Level 3.4 MMOL/L (3.5-5.1) L Chloride Level 103 MMOL/L (98-107) Carbon Dioxide Level 27 MMOL/L (21-32) Anion Gap 9 mmol/L (5-15) Blood Urea Nitrogen 15 mg/dL (7-18) Creatinine 1.0 MG/DL (0.55-1.30) Estimat Glomerular Filtration Rate > 60 mL/min (>60) Glucose Level 100 MG/DL (74-106) Calcium Level 8.7 MG/DL (8.5-10.1) Total Bilirubin 1.2 MG/DL (0.2-1.0) H Direct Bilirubin 0.3 MG/DL (0.0-0.3) Aspartate Amino Transf (AST/SGOT) 24 U/L (15-37) Alanine Aminotransferase (ALT/SGPT) 22 U/L (12-78) Alkaline Phosphatase 58 U/L (46-116) Total Protein 7.1 G/DL (6.4-8.2) Albumin 3.5 G/DL (3.4-5.0) Globulin 3.6 g/dL Albumin/Globulin Ratio 1.0 (1.0-2.7) Vitamin D 25-Hydroxy Pending 25-Hydroxy Vitamin D2 Pending 25-Hydroxy Vitamin D3 Pending Milton Bloom MD Jul 03, 2020 19:05
[2020-07-03 20:00] VITALS: BP 150/92
[2020-07-04] VITALS: BP 112/56
[2020-07-04 04:00] VITALS: BP 132/73
--- NOTE | 2020-07-04 07:14 | Consultation ---
DATE OF CONSULTATION: 07/02/2020 NEUROLOGIC CONSULTATION CONSULTING PHYSICIAN: Hira Castellano MD HISTORY OF PRESENT ILLNESS: This is the second [facility] admission for this 80-year-old right-handed man with a previous history of coronary artery disease with 5 bypasses, hypothyroidism, paroxysmal atrial fibrillation, hyperlipidemia, hypertension, BPH with scrotal infection, with almost 100 pack-year history of smoking. The patient was admitted with chief complaint of altered mental status beginning yesterday. The patient on 07/01/2021, was his [birth year]. His family tried to call him at home. He was apparently normal last night; however, his son came to the house and found him "deeply asleep." When he awoke him, he was confused. It was hard to awaken him. The patient himself does not know why he is here. He denies any headaches, seizures, blackouts, previous strokes, tremors or shakes, liver disease, or hypothyroidism. There is no muscle weakness, paresthesias, or dysesthesias. He denies any hearing loss. He may have diplopia. It is a little hard to evaluate. He has occasional dizzy spells, which last 1 second. The patient at home is on the following medicines; aspirin, amiodarone, Zetia, gemfibrozil, prednisone 20 mg, Phenergan Crestor, tramadol, losartan,. The patient was brought to the hospital. His CBC was abnormal low platelet count. His white count was normal Chemistries were normal except for BUN of 20 , glucose 80, slightly low alkaline phosphatase of 40, slightly low total protein and albumin. Troponin was normal. normal lactic acid urinalysis was normal,abg low pH of 7.245, slightly elevated pCO2 of 45.1, pO2 of 74.2. The patient's EKG on admission was normal sinus rhythm, left axis deviation, left bundle-branch block. CT scan of the brain was negative Chest x-ray suggested a small left pleural effusion and possible retrocardiac atelectasis or consolidation. There is some cardiomegaly. CT of the cervical spine no injury identified . The patient was continued on his levothyroxine and his Thyroid [place] 60 mg daily, Rocephin 1 g IV piggyback, calcium gluconate, vancomycin 1 g IV piggyback, amiodarone 200 mg, Coreg 6.25 mg, aspirin 81 mg, Zetia 10 mg, Proscar 5 mg, 100 mg IV Solu-Cortef given one time. There is no family history of neurologic disease. PAST MEDICAL HISTORY/PAST MEDICAL ILLNESSES: 1. Coronary artery disease. See above. 2. Cataract. See above. 3. BPH. See above. 4. Probable COPD. 5. Anemia. See above. 6. Hyperlipidemia. See above. 7. Hypertension. See above. 8. Atrial fibrillation and coronary artery disease. 9. Urinary tract infection. 10. Prostatic hyperplasia and inflammatory disorder of the scrotum in the previous admission. ALLERGIES: He has no allergies. HABITS: He currently has 100 pack-year history of tobacco use, cigarettes per day. Alcohol, occasional. No illegal drugs. SOCIAL HISTORY: He is with two children in good health. FAMILY HISTORY: His father was killed in action in ww-2. REVIEW OF SYSTEMS: see above PHYSICAL EXAMINATION: VITAL SIGNS: His weight is 186 pounds. He is 5 feet 5 inches tall. His temperature is 98.1 degrees, pulse is 70 and regular, blood pressure is 146/71, respiratory rate is 20. GENERAL: well developed obese male HEENT: normal NECK: Supple. There is no tenderness. Carotids are +1 and +2. No JVD appreciated. LUNGS: Breath sounds are decreased bilaterally rales or rhonchi appreciated. CARDIOVASCULAR SYSTEM: PMI could not be felt. JVP was not seen. The patient had normal S1, S2 There is no S3, S4, murmurs, or rubs appreciated. ABDOMEN: The abdomen is obese. He has some epigastric tenderness without rebound or guarding. Bowel sounds were normal. There is no organomegaly. BACK: There is no tenderness to percussion. EXTREMITIES: The extremities revealed no edema. NEUROLOGIC EXAMINATION: MENTAL STATUS: He was alert and awake. Judgment was difficult to test. Affect is appropriate. Memory, his past memory intact to his birthday, 1940. Immediate recall 3/3 objects, recent recall 0/3 objects at 5 minutes. Intellect could not be tested. Orientation, time, he knew it was June 2020, did not know the exact date, but knew it is Friday. He knew he is at [facility], did not know what floor he is on. He was oriented to person. Language function, spoken speech Luxembourgish was his language, he was somewhat nonfluent, but basically intact with fair comprehension and good repetition. There is no right and left confusion or finger agnosia. He could spell no in Latvian, 3 to 4 letters backwards. CRANIAL NERVE EXAMINATION: CRANIAL NERVE II: Visual hernandez are intact to confrontation. Fundi were not visualized. CRANIAL NERVE III, IV, AND : Extraocular motility was full except for conjugate decreased upgaze. Pupils approximately 2.5 mm, round, sluggishly reactive to light. CRANIAL NERVE V: Facial and corneal sensation were intact to fine touch. Pterygoid strength is 5/5. CRANIAL NERVE VII: Facial strength is 5/5 bilaterally. CRANIAL NERVE VIII: Auditory acuity is slightly decreased bilaterally to loud whisper. CRANIAL NERVES IX AND X: Not tested due to pandemic. CRANIAL NERVE XI: Sternocleidomastoid strength is 5/5. CRANIAL NERVE XII: Tongue protrudes in the midline without fasciculations or atrophy. MUSCLE EXAMINATION: Muscle bulk is normal. Tone reveals mild paratonia. Strength is 5/5 proximally and distally without pronator drift. There is a slight endpoint tremor noted in the left upper extremity. There is no asterixis. COORDINATION: [id number] revealed a slight endpoint tremor on the left, but no dysmetria. Rapid alternating movements are basically intact. [id number] testing is intact. GAIT AND STATION: He was not tested. SENSORY EXAMINATION: Pinprick and fine touch were subjectively intact. Proprioception was normal. REFLEXES: A +1 in the upper extremities, zero at the knees and ankles with downgoing toes in testing for Babinski response. IMPRESSION: Because of the patient's problems are unclear that he had hypoxia on admission with mild acidosis suggests that he has mild respiratory failure, but without any evidence of congestive heart failure. Pulmonary embolism is possible. He could have taken some medication, which could have such as tramadol, but his drug screen is negative. His thyroid function is minimally abnormal and probably noncontributory. I think he had a thalamic stroke or TIA, which would cause drowsiness. An MRI scan of the brain will be obtained; however, it would not explain his abnormal blood gas. Therefore, I would probably recommend pulmonary embolism. He could have pneumonia. At this point interestingly enough, he has anemia, which is not affected by his hypoxia and therefore, he could have B12 deficiency. His B12 test will be obtained. I will speak to you about this case. PLAN: 1. MRI scan of the brain. 2. B12, methylmalonic acid level. 3. Work up for possible pulmonary embolism with D-dimer and other studies. 4. His serum ammonia, ruled out liver disease. Thank you for this interesting case, Dr. Chiu. Hira Castellano MD DR: MARY JOB#: [id number] CC: [id number]
[2020-07-04 08:00] VITALS: BP 152/73
--- NOTE | 2020-07-04 08:55 | Neurology Progress Note ---
Interim History Interim History Interim History ct scan brain negative. no new sxs. patient feels well. Objective Physical Exam Last Vital Signs Date Time Temp Pulse Resp B/P (MAP) Pulse Ox O2 Delivery O2 Flow Rate FiO2 07/04/20 04:00 98.0 60 20 132/73 (92) 98 07/03/20 20:48 Room Air 21 07/03/20 09:00 2.0 General: no acute distress Neurologic Exam Mental Status: awake - awake knowd date 07/04/20 [facility]. Language: normal language - language mostly intact for qatari Cranial Nerve II: visual hernandez - visual hernandez intact Cranial Nerves III, IV, : PERRLA - perrla 3.5 mm light reactive Cranial Nerve V: normal facial sensations - normal Cranial Nerve VII: no facial asymmetry - 7nth nerve intact Motor System: strength 5/5 - 5/5 normal tone and bulk no asterixis Coordination: normal finger to nose bilaterally - slight end point tremor on left Deep Tendon Reflexes: 2+ ankle (L) Reflexes: flexor plantar (L); mute plantar (R) Impression/Recommendations Diagnostic Impression change in mental status unclear. doubt nocturnal seizure can discharge patient when you think is necessary. Hira Castellano MD Jul 04, 2020 08:55
[2020-07-04] MEDS: Amiodarone 200mg tab ORAL SCH (09:11)
[2020-07-04] MEDS: Aspirin EC 81mg tab ORAL SCH (09:11)
[2020-07-04] MEDS: Ranolazine 500mg tab ORAL SCH (09:11)
[2020-07-04] MEDS: Carvedilol 6.25mg Tab ORAL SCH (09:12)
[2020-07-04 12:00] VITALS: BP 142/79
--- NOTE | 2020-07-04 12:54 | General Progress Note ---
Subjective Allergies: Coded Allergies: No Known Allergies (Unverified , 08/09/12) Subjective feels ok Objective Last 24 Hour Vital Signs Date Time Temp Pulse Resp B/P (MAP) Pulse Ox O2 Delivery O2 Flow Rate FiO2 07/04/20 09:12 67 152/73 07/04/20 08:00 97.7 67 20 152/73 (99) 96 07/04/20 07:41 72 07/04/20 04:00 98.0 60 20 132/73 (92) 98 07/04/20 04:00 62 07/04/20 00:00 62 07/04/20 00:00 98.0 68 20 112/56 (74) 98 07/03/20 21:15 65 150/92 07/03/20 20:48 97 Room Air 21 07/03/20 20:00 79 07/03/20 20:00 98.2 65 20 150/92 (111) 98 07/03/20 16:00 71 07/03/20 16:00 97.9 73 18 115/74 (88) 98 Intake and Output 07/03/20 07/04/20 19:00 07:00 Intake Total 240 ml Balance 240 ml Intake Oral 240 ml # Voids 2 3 Height (Feet): 6 Height (Inches): 0.00 Weight (Pounds): 160 Cardiovascular: normal rate Respiratory/Chest: lungs clear Assessment/Plan Problem List: (1) Acute encephalopathy ICD Codes: G93.40 - Encephalopathy, unspecified SNOMED: 33743054, 267444604 (2) Afib ICD Codes: I48.91 - Unspecified atrial fibrillation SNOMED: 99621990 (3) Cardiomyopathy ICD Codes: I42.9 - Cardiomyopathy, unspecified SNOMED: 42108983 (4) Hypothyroidism ICD Codes: E03.9 - Hypothyroidism, unspecified SNOMED: 02339375 (5) Hypertension ICD Codes: I10 - Essential (primary) hypertension SNOMED: 99714887 Assessment/Plan: Discussed with Michael Chung Dc, MD Jul 04, 2020 12:54
--- NOTE | 2020-07-04 14:33 | Cardiology Report ---
APPROVED REPORT EKG Measurement Heart [id number] <Conclusion> Normal sinus rhythm Left axis deviation Left bundle branch block Abnormal ECG
--- NOTE | 2020-07-04 15:31 | Cardiology Progress Note ---
Assessment/Plan Assessment/Plan 1. Metabolic encephalopathy. 2. Coronary artery disease status post percutaneous coronary intervention and bypass surgery. 3. History of atrial fibrillation. 4. History of ischemic cardiomyopathy. 5. History of hypothyroidism. 6. Reported history of atrial fibrillation previously. 7. History of hyperlipidemia. 8. History of gastroesophageal reflux disease. pt on entresto not available be at his hospital ok to dc from cardiac view point fu with dr blank as out pt looks and feel good i have not made any changes to his med he can contieu what he was taking at home Subjective Cardiovascular: Denies: chest pain, lightheadedness, palpitations Respiratory: Denies: shortness of breath Gastrointestinal/Abdominal: Denies: abdominal pain Subjective walked inhalls without any problem Objective Last 24 Hour Vital Signs Date Time Temp Pulse Resp B/P (MAP) Pulse Ox O2 Delivery O2 Flow Rate FiO2 07/04/20 12:00 98.3 63 20 142/79 (100) 97 07/04/20 09:12 67 152/73 07/04/20 09:00 Room Air 07/04/20 08:00 97.7 67 20 152/73 (99) 96 07/04/20 07:41 72 07/04/20 04:00 98.0 60 20 132/73 (92) 98 07/04/20 04:00 62 07/04/20 00:00 62 07/04/20 00:00 98.0 68 20 112/56 (74) 98 07/03/20 21:15 65 150/92 07/03/20 20:48 97 Room Air 21 07/03/20 20:00 79 07/03/20 20:00 98.2 65 20 150/92 (111) 98 07/03/20 16:00 71 07/03/20 16:00 97.9 73 18 115/74 (88) 98 General Appearance: no apparent distress, alert Cardiovascular: normal rate Respiratory/Chest: lungs clear Abdomen: normal bowel sounds, non tender, soft Extremities: no swelling Intake and Output 07/03/20 07/04/20 19:00 07:00 Intake Total 240 ml Balance 240 ml Intake Oral 240 ml # Voids 2 3 Microbiology Date/Time Source Procedure Growth Status 07/03/20 06:00 Urine,Clean Catch Urine Culture - Preliminary NO GROWTH Resulted Milton Bloom MD Jul 04, 2020 15:31
--- NOTE | 2020-07-05 11:57 | Discharge Summary ---
Discharge Summary Discharge Summary _ DATE OF ADMISSION: [] 07/01/2020 DATE OF DISCHARGE: 07/04/2020 DISCHARGED BY: Dr. Michael Chiu REASON FOR ADMISSION: 80 years old male with past medical history of coronary artery disease, status post CABG, hypertension, dyslipidemia, ischemic cardiomyopathy, paroxysmal atrial fibrillation, hypothyroidism, BPH, presented by paramedics with altered mental status. According to son, patient usually ambulatory and able to care for himself. Patient lives alone. Family was concerned that he was not answering his phone. Patient was found in the bed , confused. Per son's knowledge patient was compliant with all his medications. Upon evaluation vital signs were stable. Laboratory work-up revealed no leukocytosis , stable hemoglobin ,hematocrit ,and platelet count. ABG on room air stable. Chemistry revealed stable renal parameters. BUN 20, creatinine 0.6. Lactic acid 0.8 Troponin -0.034. EKG revealed sinus rhythm no acute ischemic changes TSH within normal limits. Urine toxicology screen was negative. Serum alcohol less than 3. Urinalysis revealed pyuria and occasional bacteria. Chest x-ray demonstrated small left pleural effusion with passive atelectasis. Retrocardiac atelectasis or consolidation. Low lung volumes with bronchovascular crowding. CT scan of the head revealed no evidence of acute intracranial pathology. CT of the cervical spine revealed osteopenia and multilevel age-related degenerative spine findings ; no acute traumatic osseous injury. Patient admitted with acute encephalopathy. CONSULTANTS: commercial driver's license driver Dr. Bloom neurologist Dr. Castellano [facility]: Patient admitted to telemetry floor . Cardiology and neurology consulted. The next day mental status back to normal. Patient did not remember what happened. Telemetry revealed sinus rhythm. Home medication continued. At home patient is on Entresto which was not available at this hospital. Guidance Counselor did not change any of his cardiac medications and cleared patient for discharge with outpatient follow up with his commercial driver's license driver. Neurologist seen and evaluated patient. Patient undergone another CT of the head in 2 days , which still revealed no acute cardiopulmonary pathology. B12 within normal limits. A Ammonia within normal limits. Neurologist recommended MRI which can be done as outpatient s if symptoms returned, and cleared patietn for dischrage/ Patient clinically stabilized and was ready for discharge home. FINAL DIAGNOSES: Acute encephalopathy -resolved Coronary artery disease Hypothyroidism Coronary artery disease , status post percutaneous coronary intervention and bypass surgery Atrial fibrillation Ischemic cardiomyopathy Hyperlipidemia GERD DISCHARGE MEDICATIONS: See Medication Reconciliation list. DISCHARGE INSTRUCTIONS: Patient was discharged home with home health services. Follow up with primary care provider in one week. I have been assigned to dictate discharge summary for this account. I was not involved in the patient's management. Krysta Harris NP Jul 05, 2020 11:57
== END 2020-07-04 15:50 | disposition home health service (06) | DRG 71 ==
LOC: EDBD 17:22 → EMR 17:52 → EDBEDREQ 17:52 → EDBEDREQSVC 17:52 → 2W 18:06 → EDBEDREQ 20:21 → 2E 07-02 11:00
DX: G93.41 Metabolic encephalopathy (principal); I25.810 Atherosclerosis of coronary artery bypass graft(s) without angina pectoris; I44.7 Left bundle-branch block, unspecified; E03.9 Hypothyroidism, unspecified; Z98.61 Coronary angioplasty status; I48.0 Paroxysmal atrial fibrillation; I25.5 Ischemic cardiomyopathy; I25.10 Atherosclerotic heart disease of native coronary artery without angina pectoris; Z95.1 Presence of aortocoronary bypass graft; K21.9 Gastro-esophageal reflux disease without esophagitis; N40.0 Benign prostatic hyperplasia without lower urinary tract symptoms; E78.5 Hyperlipidemia, unspecified; Z60.2 Problems related to living alone; H40.9 Unspecified glaucoma
CPT/HCPCS: 36415; 70450; 71045; 72125; 80053; 80307; 81003; 82140; 82248; 82306; 82550; 82607; 82803; 82962; 83605; 83921; 84439; 84443; 84481; 84484; 85025; 85379; 87086; 93005; 96365; 96367; 96375; 99291; G0480; J8499